=== PATIENT | female | born 1945 | race Caucasian/White ===

== ENCOUNTER 2024-05-16 11:38 | Outpatient (REF) | payer MEDICARE, OTHER, SELFPAY ==
[2024-05-16 13:54] LABS: Erythrocyte Sedimentation Rate 9 MM/HR (0-20)
[2024-05-16 14:10] LABS: Vitamin B12 755 pg/mL (200-900)
[2024-05-17 08:58] LABS: Lyme Abs Screen <0.90 index
== END 2024-05-16 11:39 | disposition home or self-care (01) ==
LOC: HO.LAB 11:38
PROVIDERS: PCP Internal Medicine; Visit Provider Psychiatry & Neurology Neurology
DX: G93.40 Encephalopathy, unspecified (principal)
CPT/HCPCS: 36415; 82607; 85652; 86617; 86618

== ENCOUNTER 2024-06-21 10:57 | Outpatient (REF) | payer MEDICARE, OTHER, SELFPAY ==
--- NOTE | ~2024-06-21 | MR_ITS ---
EXAMINATION: MR BRAIN WITHOUT CONTRAST CLINICAL INFORMATION: Encephalopathy. History of lung cancer and endocarditis.. COMPARISON: None available. TECHNIQUE: MRI of the brain was obtained using routine sequences without contrast. FINDINGS: No restricted diffusion. There are few scattered susceptibility signal foci within the right and distal distribution in the supratentorial compartment. No acute intracranial hemorrhage, mass effect, midline shift, hydrocephalus or herniation. Bilateral multifocal patchy and punctate deep periventricular white matter hyperintense T2 FLAIR signal involving centrum semiovale and lechuga radiata. Multifocal old lacunar infarcts with the cribriform pattern in the basal ganglia and lechuga radiata. Old lacunar infarcts in the abdominal. There is a focal hyperintense T2 FLAIR signal within the subcortical white matter of the left middle frontal gyrus. Flow-void signal within the main vessels is normal. Dolichoectatic vertebrobasilar system. Prominence of the extra-axial CSF spaces, cerebral sulci and ventricles. Sellar/suprasellar region demonstrated no signal abnormality or masses. Craniocervical junction is intact and normal. No signal abnormality within the hippocampi. Focal, 7 mm intrinsic hyperintense T1 bone lesion, left parietal diploe , probably lipoma MR/MR head/brain wo con IMPRESSION: No acute stroke/nonhemorrhagic ischemia. No acute brain abnormality. 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 Global cerebral atrophy, mild. Electronically signed by: Alexi Doran MD 06/21/2024 03:37 PM EDT
--- OUTSIDE RECORDS SUMMARY | 2024-06-21 12:42 | XMS_ITS | Clinical Summary ---
Author Organization [facility] Address [address] [place] [address] Care Team Providers Care Temperature Inspector Name Role Phone Chary Wilson MD Primary Care Provider [phone] Allergies No known active allergies Medications Medication Sig Dispensed Refills Start Date End Date Status pantoprazole (PROTONIX) 20 MG tablet Take 1 tablet (20 mg total) by mouth daily. 0 Active FLUoxetine (PROzac) 20 MG capsule Take 1 capsule (20 mg total) by mouth daily. 0 Active traZODone (DESYREL) 50 MG tablet Take 1 tablet (50 mg total) by mouth every night at bedtime. 0 Active metoprolol succinate (TOPROL-XL) 24 hr tablet 25 mg Take by mouth daily. 0 Active atorvastatin (LIPITOR) tablet 10 mg Take 1 tablet (10 mg total) by mouth every evening. 0 Active levothyroxine (SYNTHROID) tablet 25 mcg Take 1 tablet (25 mcg total) by mouth every morning on an empty stomach. 0 Active fluticasone (FLONASE) 50 MCG/ACT nasal spray spray/apply 1 spray in each nostril daily. 0 Active loratadine (Claritin) 10 MG tablet Take 1 tablet (10 mg total) by mouth daily. 0 Active vitamin D3 (cholecalciferol) 25 MCG (1000 UT) tablet Take 1 tablet (25 mcg total) by mouth daily. 0 Active amLODIPine (NORVASC) tablet 5 mg Take 1 tablet (5 mg total) by mouth daily. 0 Active Calcium Citrate-Vitamin D (CALCIUM CITRATE+D3 PO) Take by mouth. 0 Active aspirin EC 81 MG tablet Take 1 tablet (81 mg total) by mouth daily. 0 Active magnesium oxide 400 (240 Mg) MG TABS tablet Take 1 tablet (400 mg total) by mouth 2 (two) times a day. 0 Active melatonin 3 MG TABS tablet Take 2 tablets (6 mg total) by mouth every night at bedtime. 0 Active Active Problems No known active problems Family History Medical History Relation Name Comments Breast cancer Mother Relation Name Status Comments Father Mother Social History Tobacco Use Types Packs/Day Years Used Date Smoking Tobacco: Some Days Cigarettes 40 Smokeless Tobacco: Never Tobacco Cessation:Ready to Q uit: Not Asked; Counseling Given: Not Answered Comments:Pt is trying to quit she states. Alcohol Use Standard Drinks/Week Comments Not Currently 0 (1 standard drink = 0.6 oz pur e alcohol) Sex and Gender Information Value Date Recorded Sex Assigned at Female 08/23/2022 12:01 PM EDT Gender Identity Not on file Sexual Orientation Not on file Job Start Date Occupation Industry Not on file Not on file Not on file Last Filed Vital Signs Vital Sign Reading Time Taken Comments Blood Pressure 138/60 09/16/2023 10:29 AM EDT Pulse 65 09/16/2023 10:29 AM EDT Temperature 36.7 ??C (98 ??F) 09/16/2023 10:29 AM EDT Respiratory Rate - - Oxygen Saturation 99% 09/16/2023 10:29 AM EDT Inhaled Oxygen Concentration - - Weight 62.4 kg (137 lb 9.6 oz) 09/16/2023 10:29 AM EDT Height 152.5 cm (5' 0.05 ) 09/16/2023 10:29 AM E DT Body Mass Index 26.83 09/16/2023 10:29 AM EDT Plan of Treatment Health Maintenance Due Date Last Done Comments Hepatitis C Screening 1945 COVID-19 Vaccine (#1) 1952 Depression Screening 1959 Preventative Health Evaluation 1965 Tobacco Cessation Counseling 1965 Shingrix-Zoster Vaccine (1 of 2) 1966 Fall Risk Assessment 2012 Osteoporosis Screening (DEXA Scan) 2012 DTap / Tdap / Td (2 - Td or Tdap) 10/28/2021 10/29/2011 RSV Adult > 60+ Yrs or (1 - 1-dose 75+ series) 2022 Influenza Vaccine (#1) 2023 3, 11/05/2021, 10/26/2019, Additional history exists Pneumococcal Vaccine Completed 10/26/2019, 11/05/2017, 07/10/2014, Additional history exists Hepatitis B Vaccines Aged Out No long er eligible based on patient's age to complete this topic RSV Ped < 20 months Aged Out No longe r eligible based on patient's age to complete this topic Care Teams Temperature Inspector Relationship Specialty Start Date End Date Chary Wilson MD PCP - General Internal Medicine 08/23/22
--- OUTSIDE RECORDS SUMMARY | 2024-06-21 12:42 | XMS_ITS | Encounter Summary ---
Author Organization [facility] Address [address] [place] [address] Care Team Providers Care Senior Estimator Name Role Phone Chary Wilson MD Primary Care Provider [phone] Reason for Referral * Consultation (Routine) - Authorized Specialty Diagnoses / Procedures Referred By Nayla ceron Referred To Contact Gastroenterology Diagnoses Gastroesophageal reflux disease without esophagitis Chary Wilson MD [address] [place] [address] Phone: tel: fax: Referral ID Status Reason Start Date Expiration Date Visits Requested Visits Authorized [id number] Authorized Specialty Services Required 06/20/2024 06/20/2025 1 1 Reason for Visit * Reason Comments Pre-op Exam Jas Thomas [email or web address] 07/26 Hypertension Encounter Details Date Type Department Care Team (Late st Contact Info) Description 06/20/2024 10:00 AM EDT Consult Adult Medicine [address] [address] Chary Wilson MD [address] [place] [address] Preop cardiovascular exam (Primary Dx); Primary hypertension; Other hyperlipidemia; Hypothyroidism due to acquired atrophy of thyroid; Coronary artery disease involving tanacross coronary artery of tanacross heart without angina pectoris; Recurrent major depressive disorder, in full remission ([facility] V24); Gastroesophageal reflux disease without esophagitis; Cataract of both eyes, unspecified cataract type Social History Tobacco Use Types Packs/Day Years Used Date Smoking Tobacco: Some Days Smokeless Tobacco: Never Tobacco Cessation:Ready to Q uit: Not Asked; Counseling Given: Not Answered Alcohol Use Standard Drinks/Week Comments Not Currently 0 (1 standard drink = 0.6 oz pur e alcohol) Housing Instability Answer Date Recorde d Are you worried that in the next 2 months you may not have stable housing? No 06/19/2024 Food Access & Nutrition Answer Date Rec orded Do you have access to a vari ety of food including fruits and vegetables? Yes 06/19/2024 Access to Healthcare Answer Date Record ed Within the last 3 months, ho daryl many times did you visit the emergency department for your medical care? 1 06/19/2024 Health Literacy Answer Date Recorded How often do you need to hav e someone help you when you read instructions, pamphlets, or other written material from your doctor or pharmacy? Always 06/19/2024 Caregiver: How often do you need to have someone help you when you read instructions, pamphlets, or other written material from your doctor or pharmacy? Not on file 06/19/2024 Financial Risk Answer Date Recorded How hard is it for you to pa y for the very basics like food, housing, medical care, and air conditioning / heating? Not very hard 06/19/2024 Transportation Answer Date Recorded Has the lack of transportati on kept you from meetings, work, or from getting things needed for daily living? No Has the lack of transportati on kept you from medical appointments or from getting medications? No 06/19/2024 Social Isolation Answer Date Recorded How often do you feel lonely or isolated from those around you? Sometimes 06/19/2024 Food Risk Answer Date Recorded Within the past 12 months we worried whether our food would run out before we got money to buy more. Never true 06/19/2024 Within the past 12 months th e food we bought just didn't last and we didn't have money to get more. Never true 06/19/2024 Dependent Care Answer Date Recorded Do you need help finding or paying for care for your loved ones. For example, child development consultant or elderly care for an older adult? No 06/19/2024 Education Answer Date Recorded Do you think completing more education or training, like finishing a GED, going to college, or learning a trade, would be helpful for you? No 06/19/2024 Employment and Income Answer Date Recor ded During the last four weeks, have you been actively looking for work? No 06/19/2024 Living Situation Answer Date Recorded What is your living situation? 0 06/19/2024 Comments Unknown Sex and Gender Information Value Date Recorded Sex Assigned at Not on file Legal Sex Female 3:52 AM EST Gender Identity Not on file Sexual Orientation Not on file documented as of this encounter Last Filed Vital Signs Vital Sign Reading Time Taken Comments Blood Pressure 118/62 06/20/2024 9:50 AM EDT Pulse 61 06/20/2024 9:50 AM EDT Temperature 36.8 ??C (98.3 ??F) 06/20/2024 9:50 AM ED T Respiratory Rate 14 06/20/2024 9:50 AM EDT Oxygen Saturation 97% 06/20/2024 9:50 AM EDT Inhaled Oxygen Concentration - - Weight 61.6 kg (135 lb 12.8 oz) 06/20/2024 9:50 AM EDT Height 154.9 cm (5' 1 ) 06/20/2024 9:50 AM EDT Body Mass Index 25.66 06/20/2024 9:50 AM EDT documented in this encounter Progress Notes * Chary Wilson MD - 06/20/2024 10:00 AM EDT Referring MD: Enoch HPI: Ms. Lemus is a 79 y.o. year old female who is scheduled for bilateral cataract extraction with lens implant left July 05, right July 26. She is here today for pre-operative consultation. Her functional status is greater than 4 METs as she can walk up a flight of stairs. She has not had problems with anesthesia or bleeding. She is seen today accompanied by her son. She has had a lung resection for lung cancer and is beingclosely followed by oncology, had coronary artery disease, hypertension, depression, elevated cholesterol, hypothyroidism. She does have significant spinal scoliosis. She is complaining of some reflux symptoms despite high-dose Protonix. She notes she was in the ER a week ago due to some dizziness and weakness, near syncope. She had negative labs, has not had any recurrence of symptoms since then. ROS: General: No malaise, significant weight loss or fever HEENT: No changes in hearing, nose bleeds Neck: No pain or significant neck swelling Respiratory: No cough, wheezing or shortness of breath Cardiovascular: No chest pain, palpitations, no orthopnea GI: No nausea or vomiting, diarrhea, blood in stools or black stools : No dysuria, frequency or incontinence Musculoskeletal: No joint pain or swelling, no muscle pain or stiffness Skin: No lesions, rash or itching Psych: No sleep disturbance, mood disorder Heme/lymph: No prolonged bleeding, bruising, easily Endocrine: No cold or heat intolerance, polyuria, polydipsia Neuro no persistent headache, syncope, seizures, weakness or numbness The remainder of the review of systems is noncontributory. PAST MEDICAL HISTORY: Patient Active Problem List Diagnosis Date Noted PFD (pelvic floor dysfunction) 11/24/2023 Rectocele 11/24/2023 Malignant neoplasm of lower lobe of right lung ([facility] V24, [facility] V28) 08/16/2022 Vitamin D deficiency 06/21/2022 Chronic back pain 04/16/2020 Hypertension 01/30/2020 CAD (coronary artery disease) 12/27/2018 Complete heart block ([facility] V24, [facility] V28) 12/27/2018 Hypothyroidism 12/27/2018 S/P MVR (mitral valve replacement) 12/27/2018 Pacemaker 12/27/2018 Depression, major, recurrent ([facility] V24) 02/11/2014 Osteopenia 12/03/2012 Kidney stone 09/01/2010 Onychomycosis 11/17/2006 Acute osteomyelitis of lower leg ([facility] V24, [facility] V28) 03/12/2005 Carpal tunnel syndrome 03/12/2005 Hyperlipidemia 03/12/2005 Idiopathic scoliosis and kyphoscoliosis 03/12/2005 . SOCIAL HISTORY: Social History Tobacco Use Smoking status: Some Days Smokeless tobacco: Never Substance Use Topics Alcohol use: Not Currently FAMILY HISTORY: Family History Problem Relation Name Age of Onset Breast cancer Mother CABG Other (aaa) Father Thyroid cancer Sister Ovarian cancer Maternal Grandmother ACTIVE MEDICATIONS: Outpatient Medications Marked as Taking for the 06/20/24 encounter (Consult) with Chary Wilson MD Medication Sig Dispense Refill amLODIPine (NORVASC) 5 mg tablet Take 1 tablet (5 mg total) by mouth 1 (one) time each day. 90 tablet 1 aspirin 81 mg EC tablet Take 1 tablet (81 mg total) by mouth 1 (one) time each day. 90 tablet 3 atorvastatin (LIPITOR) 10 mg tablet Take 1 tablet (10 mg total) by mouth at bedtime. 90 tablet 1 cholecalciferol (VITAMIN D-3) 25 mcg (1,000 unit) tablet Take 1 tablet (25 mcg total) by mouth daily. FLUoxetine (PROzac) 10 mg capsule Use along with 20 mg tab daily 30 each 5 FLUoxetine (PROzac) 20 mg capsule Take 1 capsule (20 mg total) by mouth 1 (one) time each day. 30 each 5 levothyroxine (SYNTHROID, LEVOTHROID) 25 mcg tablet Take 1 tablet (25 mcg total) by mouth 1 (one) time each day. 90 tablet 1 metoprolol succinate (TOPROL-XL) 25 mg 24 hr tablet Take 1 tablet (25 mg total) by mouth 1 (one) time each day. Do not crush or chew. 90 tablet 1 pantoprazole (PROTONIX) 40 mg EC tablet Take 1 tablet (40 mg total) by mouth 2 (two) times a day. 180 tablet 1 traZODone (DESYREL) 50 mg tablet Take 1 tablet (50 mg total) by mouth at bedtime. 90 tablet 1 ALLERGIES: Patient has no known allergies. PHYSICAL EXAM: Blood pressure 118/62, pulse 61, temperature 36.8 ??C (98.3 ??F), temperature source Temporal, resp. rate 14, height 1.549 m (61 ), weight 61.6 kg (135 lb 12.8 oz), SpO2 97%. Body mass index is 25.66kg/m??. General: patient is in no acute distress. Eye exam: JAMARI, EOMI. ENT exam: pharynx is clear no tonsillar enlargement or exudates. Tympanic membranes are clear without air fluid levels or erythema. Neck supple without adenopathy, no thyromegaly. Lungs clear with auscultation. Heart: regular S1S2 without murmur, rub or gallop. Abdominal exam: soft, nontender, no masses or organomegaly. Bowel soundsnormal active. Extremities without cyanosis, clubbing or edema. Neurological: exam is nonfocal. Strength, reflexes, sensation in the upper and lower extremities intact. Skin exam: without lesions. LABS: Lab Results Component Value Date WBC 11.1 (H) 06/13/2024 HGB 13.1 06/13/2024 HCT 40.9 06/13/2024 MCV 95.6 06/13/2024 Lab Results Component Value Date NA 142 06/13/2024 K 4.7 06/13/2024 CO2 27 06/13/2024 CL 108 06/13/2024 BUN 21 06/13/2024 Lab Results Component Value Date TSH 0.93 02/10/2024 EKG: Normal sinus rhythm rate 72, right bundle branch block, no ischemic changes. ASSESSMENT AND PLAN: 1. Preop cardiovascular exam 2. Primary hypertension 3. Other hyperlipidemia 4. Hypothyroidism due to acquired atrophy of thyroid 5. Coronary artery disease involving tanacross coronary artery of tanacross heart without angina pectoris 6. Recurrent major depressive disorder, in full remission ([facility] V24) 7. Gastroesophageal reflux disease without esophagitis 8. Cataract of both eyes, unspecified cataract type Cardiac - Ms. Lemus clinical risk factors include ischemic heart disease and female is scheduled for a low risk procedure. Her functional capacity is estimated to be greater than 4 METs. She is, therefore, estimated to have an acceptablerisk for the proposed procedure. Further cardiac workup is not warranted. Beta blockade perioperatively is to be continued. Pulmonary - Her pulmonary risk factors include age > 50. Early ambulation and use of incentive spirometry, when appropriate, are encouraged. Medications -she will be following with oncology as already planned and has a chest CT scheduled. She is having some reflux symptoms, will continue with Protonix and is referred to see GI. Depressionis stable on the Prozac and she will continue with Lipitor for her cholesterol, good blood pressurecontrol with amlodipine and Toprol. She denies any cardiac ischemic symptoms. She will hold the baby aspirin for 1 week prior to each procedure and otherwise take her morning medications on the morning of the procedure with a small amount of water. Please do not hesitate to contact me with any questions or concerns. Thank you for the courtesy of this consultation. Chary Wilson MD on 06/20/2024 at 10:25 AM EDT cc: Eonch documented in this encounter Plan of Treatment Upcoming Encounters Date Type Department Care Team (Late st Contact Info) Description 07/03/2024 11:00 AM EDT Appointment [facility] CT Scan [address] [place] [address] 07/19/2024 1:30 PM EDT Office Visit [facility] Hematology Oncology [address] [place] [address] Marla Manuel, [address] [place] [address] 08/08/2024 9:45 AM EDT Office Visit Adult Medicine [facility] [address] [place] [address] Milli Luu PA [address] [place] [address] Scheduled Referrals Name Type Priority Associated Diagnoses Order Schedule Ambulatory referral to Gastroenterology Outpatient Referral Routine Gastroesophageal reflux disease without esophagitis 1 Occurrences starting 06/20/2024 until 06/20/2025 documented as of this encounter Visit Diagnoses Diagnosis Preop cardiovascular exam- Primary Pre-operative cardiovascular examination Primary hypertension Unspecified essential hypertension Other hyperlipidemia Hypothyroidism due to acquired atrophy of thyroid Coronary artery disease involving tanacross coronary artery of tanacross heart without angina pectoris Recurrent major depressive disorder, in full remission (CMS/HCC V24) Gastroesophageal reflux disease without esophagitis Esophageal reflux Cataract of both eyes, unspecified cataract type documented in this encounter Additional Health Concerns Assessment Noted Time PHQ-9 Depression Total Score: 16 025 12:53 PM EDT documented as of this encounter Care Teams Senior Estimator Relationship Specialty Start Date End Date Chary Wilson MD [address] [place] [id number] PCP - General 02/22/1996 documented as of this encounter
--- OUTSIDE RECORDS SUMMARY | 2024-06-21 12:42 | XMS_ITS | Clinical Summary ---
Author Organization [facility] Address [address] [address] Phone Care Team Providers Care Administrative Asst Name Role Phone Chary Wilson MD Primary Care Provider [phone] Allergies Active Allergy Reactions Criticality Noted Date Comments Ofloxacin Other (see comments) 01/02/2019 Unknown reaction Simvastatin Other (see comments) 01/02/2019 D/c due to interaction with antibiotic Medications acetaminophen (TYLENOL) 325 MG tablet Take 3 tablets by mouth 4 (four) times a day Active Aspirin Buf,CaCarb-MgCa rb-MgO, 81 MG tablet Take 81 mg by mouth 1 (one) time each day Active FLUoxetine (PROzac) 20 MG capsule Take 1 capsule by mouth 1 (one) time each day 9 Active melatonin 3 MG tablet Take 6 mg by mouth at bed time 9 Active pantoprazole (PROTONIX) 20 MG EC tablet Take 40 mg by mouth in the morning and 40 mg in the evening. 1 Active traZODone (DESYREL) 50 MG tablet Take 1 tablet by mouth 1 (one) time each day Patient takinghalf tab 1 Active metoprolol tartrate 25 MG tablet Take 1 tablet (25 mg total) by mouth 1 (one) time each day 90 tablet 3 2 Active atorvastatin (LIPITOR) 10 MG tablet Take 1 tablet (10 mg total) by mouth 1 (one) time each day 90 tablet 3 2 Active levothyroxine (SYNTHROID, LEVOTHROID) 25 MCG tablet Take 1 tablet by mouth once daily 90 tablet 3 Active amLODIPine (NORVASC) 5 MG tablet Take 1 tablet (5 mg total) by mouth 1 (one) time each day 90 tablet 3 4 Active Sennosides-Docu sate Sodium (SENNA-DOCUSATE SODIUM PO) Take by mouth Activ e Calcium Carb-Cholecalci ferol (CALCIUM + D3 PO) Take by mouth Active Active Problems Problem Noted Date Diagnosed Date Chronic kidney disease, stage 2 (mild) 4 Hypertensive chronic kidney disease 12/26/2023 Stage 3a chronic kidney disease 07/30/2020 Essential (primary) hypertension 07/30/2020 Hypovolemia 07/30/2020 Stage 3 chronic kidney disease, not otherwise sp ecified 07/29/2020 Liver enzymes level above reference range 2020 Chronic back pain 04/16/2020 Hypertension 01/30/2020 Cardiac pacemaker in situ 12/27/2018 Overview (07/29/2020): Overview: Complete heart block 12/09 Complete heart block 12/09 Complete heart block 12/27/2018 Overview (07/29/2020): Overview: Pacemaker 12/09 Pacemaker 12/09 Coronary arteriosclerosis 12/27/2018 Overview (07/29/2020): Overview: 2 v CABG 11/09 2 v CABG 11/09 History of mitral valve replacement 12/27/2018 Overview (07/29/2020): Overview: 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 11/09 Bioprosthetic valve 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 11/09 Bioprosthetic valve Hypothyroidism 12/27/2018 Personal history of transien t ischemic attack (TIA), and cerebral infarction without residual deficits 12/27/2018 Overview (07/29/2020): Overview: Septic emboli, CVA 12/09, endocarditis Septic emboli, CVA 12/09, endocarditis Recurrent major depression 02/11/2014 Osteopenia 12/03/2012 Overview (07/29/2020): Overview: 12/03 T score spine +1.6 hip -1.3 12/03 T score spine +1.6 hip -1.3 12/10 T score spine +1.1 hip -1.7 FRAX score 18% 10 year fracture risk Renal stone 09/01/2010 Overview (07/29/2020): Overview: 4 mm nonobstructing, left kidney 4 mm nonobstructing, left kidney Onychomycosis 11/17/2006 Acute osteomyelitis of lower leg 03/12/2005 Overview (07/29/2020): Overview: left leg age 10, age 22 O update left leg age 10, age 22 O update Carpal tunnel syndrome 03/12/2005 Hyperlipidemia 03/12/2005 Scoliosis (and kyphoscoliosis), idiopathic 03/12 Immunizations Immunization Administration Dates Next Due Influenza (IM) Preservative Free 11/05/2017 Influenza Split High Dose Pr eservative Free IM 10/26/2019,11/26/2018 Influenza TIV (IM) 01/06/2016,12/10/2013, 013 Influenza, MDCK, Quadrivalen t, with preservative 01/03/2017 Pneumococcal Conjugate 13-Valent 11/05/2017,06/22 Pneumococcal Polysaccharide 11/13/2012 Td 02/21/2009 Tdap 10/29/2011 Family History Medical History Relation Comments Cancer Mother breast Gout Mother Heart disease Mother CHF Hypertension Mother Relation Status Comments Father Mother Social History Tobacco Use Types Packs/Day Years Used Date Smoking Tobacco: Former Cigarettes Q uit: 11/18/2018 Smokeless Tobacco: Never Alcohol Use Standard Drinks/Week Comments Yes 0 (1 standard drink = 0.6 oz pure alcohol) Alcoholic Drinks/day: Occasional social drink Comments Unknown Sex and Gender Information Value Date Recorded Sex Assigned at Not on file Legal Sex Female 4:55 PM EST Gender Identity Not on file Sexual Orientation Not on file Last Filed Vital Signs Vital Sign Reading Time Taken Comments Blood Pressure 138/74 12/26/2023 2:00 PM EST Pulse 70 12/26/2023 2:00 PM EST Temperature - - Respiratory Rate - - Oxygen Saturation 98% 12/22/2018 12:00 PM EDT Inhaled Oxygen Concentration - - Weight 62.4 kg (137 lb 9.6 oz) 12/26/2023 2:00 P M EST Height 152.4 cm (5') 01/28/2020 12:00 PM EST Body Mass Index 26.87 01/28/2020 12:00 PM EST Plan of Treatment Upcoming Encounters Date Type Department Care Team (Late st Contact Info) Description 12/24/2024 1:45 PM EST Office Visit [facility] [address] [phone] Michael Bellamy MD [address] [address] Health Maintenance Due Date Last Done Comments Influenza Vaccine (Season Ended) 2024 01/05/2023, 11/05/2021, 11/21/2020, Additional history exists Pneumococcal Vaccine: 50+ Years Completed 10/26/2019, 11/05/2017, 07/10/2014, Additional history exists Pneumococcal Vaccine: Peds (0 to 5 Years) and At-Risk Patients (6 to 49 Years) Discontinued 10/26/2019, 11/05/2017, 07/10/2014, Additional history exists Hepatitis B Vaccine Aged Out No longe r eligible based on patient's age to complete this topic Insurance [facility] Medicare [facility] Medicare Care Teams Administrative Asst Relationship Specialty Start Date End Date Chary Wilson MD [address] [place] [address] PCP - General Internal Medicine 09/07/21
--- OUTSIDE RECORDS SUMMARY | 2024-06-21 12:43 | XMS_ITS | Encounter Summary ---
Author Organization [facility] Address [address] [place] [address] Care Team Providers Care Crystal Attacher Name Role Phone Chary Wilson MD Primary Care Provider Encounter Details Date Type Department Care Team (Late Contact Info) Description 02/18/2024 Lab Requisition [facility] - Main Lab [address] [facility] [place] [phone] Joya Moore MD [address] [place] [id number] Encounter for other general examination Social History Tobacco Use Types Packs/Day Years Used Date Smoking Tobacco: Some Days Smokeless Tobacco: Never Alcohol Use Standard Drinks/Week Comments Not Currently 0 (1 standard drink = 0.6 oz pur e alcohol) Comments Unknown Sex and Gender Information Value Date Recorded Sex Assigned at Not on file Legal Sex Female 3:52 AM EST Gender Identity Not on file Sexual Orientation Not on file documented as of this encounter Plan of Treatment Upcoming Encounters Date Type Department Care Team (Late Contact Info) Description 07/03/2024 11:00 AM EDT Appointment [facility] CT Scan [address] [place] [phone] 07/19/2024 1:30 PM EDT Office Visit [facility] Hematology Oncology [address] [place] [phone] Marla Manuel, DO [address] [place] [address] 08/08/2024 9:45 AM EDT Office Visit Adult Medicine [facility] [address] [place] [phone] Milli Luu PA [address] [place], [place] documented as of this encounter Procedures Procedure Name Priority Date/Time Associated Diagnosis Comments COMPLETE BLOOD COUNT Routine 02/18/2024 8:12 AM EST Encounter for other general examination COMPREHENSIVE METABOLIC PANEL Routine 02/18/2024 8:12 AM EST Encounter for other general examination documented in this encounter Results * (ABNORMAL) Comprehensive metabolic panel (02/18/2024 8:12 AM EST) Sodium 142 133 - 145 mmol/L LAB CHEMISTRY METHOD 02/18/2024 11:03 AM [facility] Potassium 4.1 3.5 - 5.5 mmol/L LAB CHEMISTRY METHOD 02/18/2024 11:03 AM [facility] Chloride 108 96 - 110 mmol/L LAB CHEMISTRY METHOD 02/18/2024 11:03 AM [facility] CO2 31 21 - 32 mmol/L LAB CHEMISTRY METHOD 02/18/2024 11:03 AM [facility] Anion Gap 3 3 - 11 LAB CHEMISTRY METHOD 02/18/2024 11:03 AM [facility] Glucose 123(H) 70 - 100 mg/dL LAB CHEMISTRY METHOD 02/18/2024 11:03 AM [facility] BUN 19 5 - 25 mg/dL LAB CHEMISTRY METHOD 02/18/2024 11:03 AM [facility] Creatinine 0.98 0.50 - 1.10 mg/dL LAB CHEMISTRY METHOD 02/18/2024 11:03 AM [facility] eGFR 60 >=60 mL/min/1. 73m2 LAB CHEMISTRY METHOD 02/18/2024 11:03 AM [facility] Comment:Calculation based on the??Chronic Kidney Disease Epidemiology Collaboration (CKD-EPI) equation refit??without adjustment for race. BUN/Creatinine Ratio 19.4 LAB CHEMISTRY METHOD 02/18/2024 11:03 AM [facility] Calcium 9.1 8.5 - 10.5 mg/dL LAB CHEMISTRY METHOD 02/18/2024 11:03 AM [facility] AST (SGOT) 18 10 - 42 unit/L LAB CHEMISTRY METHOD 02/18/2024 11:03 AM [facility] ALT (SGPT) 18 10 - 60 unit/L LAB CHEMISTRY METHOD 02/18/2024 11:03 AM [facility] Alkaline Phosphatase 86 42 - 121 unit/L LAB CHEMISTRY METHOD 02/18/2024 11:03 AM [facility] Total Protein 6.8 6.0 - 8.0 g/dL LAB CHEMISTRY METHOD 02/18/2024 11:03 AM [facility] Albumin 3.7 3.2 - 5.0 g/dL LAB CHEMISTRY METHOD 02/18/2024 11:03 AM [facility] Total Bilirubin 0.3 0.0 - 1.4 mg/dL LAB CHEMISTRY METHOD 02/18/2024 11:03 AM [facility] Blood Venous blood specimen / Unknown Venipuncture / Unknown 02/18/2024 8:12 AM EST 02/18/2024 9:25 AM EST us Joya Moore MD LAB BLOOD ORDERABLES Final Resu lt [facility] [address] [place] [address], [place] [phone] * (ABNORMAL) Complete blood count (02/18/2024 8:12 AM EST) [facility] WBC 5.5 4.8 - 10.8 K/mcL LAB HEMETOLOGY METHOD 02/18/2024 10:42 AM [facility] RBC 4.10 3.80 - 4.80 M/mcL LAB HEMETOLOGY METHOD 02/18/2024 10:42 AM [facility] Hemoglobin 12.5 11.5 - 16.0 g/dL LAB HEMETOLOGY METHOD 02/18/2024 10:42 AM [facility] Hematocrit 40.0 35.0 - 47.0 % LAB HEMETOLOGY METHOD 02/18/2024 10:42 AM [facility] MCV 98.0 79.0 - 98.0 FL LAB HEMETOLOGY METHOD 02/18/2024 10:42 AM [facility] MCH 30.6 27.0 - 32.0 pcg LAB HEMETOLOGY METHOD 02/18/2024 10:42 AM [facility] MCHC 31.3(L) 32.0 - 37.0 g/dL LAB HEMETOLOGY METHOD 02/18/2024 10:42 AM [facility] RDW 12.8 11.0 - 15.0 % LAB HEMETOLOGY METHOD 02/18/2024 10:42 AM [facility] Platelets 343 130 - 400 K/mcL LAB HEMETOLOGY METHOD 02/18/2024 10:42 AM [facility] MPV 10.4 7.0 - 11.0 FL LAB HEMETOLOGY METHOD 02/18/2024 10:42 AM [facility] NRBC 0.0 <1.0 % LAB HEMETOLOGY METHOD 02/18/2024 10:42 AM [facility] NRBC Absolute 0.00 <0.10 K/mcL LAB HEMETOLOGY METHOD 02/18/2024 10:42 AM [facility] Blood Venous blood specimen / Unknown Venipuncture / Unknown 02/18/2024 8:12 AM EST 02/18/2024 9:25 AM EST us Joya Moore MD LAB BLOOD ORDERABLES Final Resu lt [facility] [address] [place] [address], documented in this encounter Visit Diagnoses Diagnosis Encounter for other general examination documented in this encounter Care Teams Crystal Attacher Relationship Specialty Start Date End Date Chary Wilson MD [address] [place] [id number] PCP - General 02/22/1996 documented as of this encounter
--- OUTSIDE RECORDS SUMMARY | 2024-06-21 12:43 | XMS_ITS | Clinical Summary ---
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 Active amLODIPine (NORVASC) 5 mg tablet Take 1 tablet (5 mg total) by mouth 1 (one) time each day. 90 tablet 1 01/30/2024 Active atorvastatin (LIPITOR) 10 mg tablet Take 1 tablet (10 mg total) by mouth at bedtime. 90 tablet 1 01/30/2024 Active metoprolol succinate (TOPROL-XL) 25 mg 24 hr tablet Take 1 tablet (25 mg total) by mouth 1 (one) time each day. Do not crush or chew. 90 tablet 1 01/30/2024 Active traZODone (DESYREL) 50 mg tablet Take 1 tablet (50 mg total) by mouth at bedtime. 90 tablet 1 01/30/2024 Active hydrOXYzine HCL (ATARAX) 10 mg tablet Take 1 tablet (10 mg total) by mouth every 6 (six) hours if needed for itching. Active FLUoxetine (PROzac) 20 mg capsule Take 1 capsule (20 mg total) by mouth 1 (one) time each day. 30 each 5 03/02/2024 Active FLUoxetine (PROzac) 10 mg capsule Use along with 20 mg tab daily 30 each 5 03/02/2024 Active aspirin 81 mg EC tablet Take 1 tablet (81 mg total) by mouth 1 (one) time each day. 90 tablet 3 03/29/2024 Active pantoprazole (PROTONIX) 40 mg EC tablet Take 1 tablet (40 mg total) by mouth 2 (two) times a day. 180 tablet 1 04/10/2024 Active levothyroxine (SYNTHROID, LEVOTHROID) 25 mcg tablet Take 1 tablet (25 mcg total) by mouth 1 (one) time each day. 90 tablet 1 05/16/2024 Active Active Problems Problem Noted Date Diagnosed Date PFD (pelvic floor dysfunction) 11/24/2023 Rectocele 11/24/2023 Malignant neoplasm of lower lobe of right lung ([facility] V24, [facility] V28) 08/16/2022 Overview (02/24/2024): 08/13 non small cell lung carcinoma RT, no active disease as of 01/14 Vitamin D deficiency 06/21/2022 Chronic back pain 04/16/2020 Hypertension 01/30/2020 CAD (coronary artery disease) 12/27/2018 Overview (11/24/2023): 2 v CABG 11/09 Complete heart block ([facility] V24, [facility] V28) 12/27/2018 Overview (11/24/2023): Pacemaker 12/09 Hypothyroidism 12/27/2018 S/P MVR (mitral valve replacement) 12/27/2018 Overview (01/03/2024): 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 11/09 Bioprosthetic valve Pacemaker 12/27/2018 Overview (01/03/2024): Complete heart block 12/09 Depression, major, recurrent ([facility] V24) 02/11 Osteopenia 12/03/2012 Overview (11/24/2023): 11/2012: T-score lumbar (+1.6); hip (-1.3) 11/2019: T-score lumbar (+1.1); hip (-1.7); FRAX 18% 06/2022: T-score lumbar (+1.4); hip (-1.7); FRAX 18% Kidney stone 09/01/2010 Overview (11/24/2023): 4 mm nonobstructing, left kidney Onychomycosis 11/17/2006 Acute osteomyelitis of lower leg ([facility] V24, [facility] V28) 03/12/2005 Overview (11/24/2023): left leg age 10, age 22 IMO update Carpal tunnel syndrome 03/12/2005 Hyperlipidemia 03/12/2005 Idiopathic scoliosis and kyphoscoliosis 03/12/19 06 Resolved Problems Problem Noted Date Diagnosed Date Resolved Date Stage 2 chronic kidney disease 01/03/2024 01/17/2024 Overview (01/03/2024): Hx dialysis dependent NIC. Follows with [facility] Stage 3 chronic kidney disea se ([facility] V24, [facility] V28) 07/29/2020 01/17/2024 Encounters Date Type Department Care Team Description 06/20/2024 10:00 AM EDT Consult Adult Medicine [address] [phone] Chary Wilson MD Preop cardiovascular exam (Primary Dx); Primary hypertension; Other hyperlipidemia; Hypothyroidism due to acquired atrophy of thyroid; Coronary artery disease involving ekuk coronary artery of ekuk heart without angina pectoris; Recurrent major depressive disorder, in full remission ([facility] V24); Gastroesophageal reflux disease without esophagitis; Cataract of both eyes, unspecified cataract type 06/13/2024 10:43 PM EDT - 06/14/2024 12:03 AM EDT Emergency [facility] Emergency [address] [place] [address] Kriss Henao MD Near syncope (Primary Dx) Discharge Disposition: Home or Self Care 05/24/2024 Telephone Adult Medicine [place] - [address] [phone] Chary Wilson MD Labs Only 05/22/[address] [phone] Ami Mcfarlane, ALEJANDRO 05/03/[address] [phone] Chary Wilson MD Provider Call Back 04/19/[address] [phone] Chary Wilson MD faxed order ([facility] Order # [id number]) 04/18/[address] [phone] Yeimi Sky RN Faxed Order ([facility] Order# [id number]) 04/10/2024 9:45 AM EST Office Visit [address] [phone] Chary Wilson MD Primary hypertension (Primary Dx); Hypothyroidism due to acquired atrophy of thyroid; Coronary artery disease involving ekuk coronary artery of ekuk heart without angina pectoris; Recurrent major depressive disorder, in full remission ([facility] V24) 04/04/[address] [phone] Chary Wilson MD provider call back 04/02/2024 [place] [facility] [address] [phone] Chary Wilson MD orders from Last 3 Months Immunizations Name Administration Dates Next Due COVID-19 (Moderna/Spikevax) 12yo and older 11/23/2022 Influenza Quadravalent, 0.5m l (Fluad) 65yo and older 11/05/2021,11/21/2020,10/26/2019 Influenza Quadravalent, MDCK , 0.5ml, with preservative (Flucelvax) 6mo and older 01/03/2017 Influenza trivalent, 0.5mL ( Fluad) 65yo and older 12/02/2023,11/05/2017 Influenza trivalent, 0.5mL ( Fluzone High-dose) 65yo and older 01/05/2023,11/05/2021,10/26/2019,11/26,11/05/2017,12/11/2014 Influenza trivalent, with pr eservative (Fluzone; Afluria) 6mo and older 01/06/2016,12/10/2013,01/04/2013 Influenza, Unspecified 11/21/2020,11/05/2017 Moderna SARS-CoV-2 COVID-19, mRNA, LNP-S, preservative free 12/16/2020 Pneumococcal conjugate 13 va lent (Prevnar 13, PCV13) 2mo and older 11/05/2017,07/10/2014 Pneumococcal polysaccharide 23 valent (Pneumovax 23) 2yo and older 10/26/2019,11/13/2012 RSV, bivalent, protein subun it RSVpreF, 0.5mL, Preservative Free (ABRYSVO) 60yo and older or 32 through 36 wks of 01/11/2023 Td Tetanus diptheria (Tdvax) 7yo and older 05/31/2022,02/21/2009 Td, Unspecified 08/31/2001 Tdap Tetanus diptheria acell ular pertussis (Boostrix; Adacel) 7yo and older 10/29/2011 Surgical History Surgery Date Site/Laterality Comments SECTION MITRAL VALVE REPLACEMENT CARDIAC PACEMAKER PLACEMENT BACK SURGERY COLONOSCOPY 05/05/2022 Medical History Medical History Date Comments Stage 3 chronic kidney disea se ([facility] V24, [facility] V28) 07/29/2020 Hypertension 01/30/2020 Hypothyroidism 12/27/2018 Kidney stone 09/01/2010 4 mm nonobstruct ing, left kidney Malignant neoplasm of lower lobe of right lung ([facility] V24, [facility] V28) 08/16/202208/13 non small c ell lung carcinoma ? 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 For example, early childhood aide classroom or elderly care for an older adult? [...] on file Sexual Orientation Not on file Obstetrics History Last Filed Vital Signs Vital Sign Reading [...] Mass Index 25.66 06/20/2024 9:50 AM EDT Plan of Treatment Upcoming Encounters Date Type Department Care Team (Late st Contact Info) Description 07/03/2024 11:00 AM EDT Appointment [facility] CT Scan [address] [place] [phone] 07/19/2024 1:30 PM EDT Office Visit [facility] Hematology Oncology [address] [place] [phone] Marla Manuel DO [address] [place] [address] 08/08/2024 9:45 AM EDT Office Visit Adult Medicine [facility] [address] [place] [phone] Milli Luu PA [address] [place] [address] Health Maintenance Due Date Last Done Comments Zoster Vaccines (1 of 2) 1964 COVID-19 Vaccine ( season) 2023 11/23/2022, 09/24/2021, 12/16/2020, Additional history exists Falls Risk Assessment 06/29/2024 06/30/2023 Medicare Annual Wellness Visit 06/29/2024 06/30/2023 Hypertension/CHF/CAD Annual BMP Blood Test 06/13/2025 06/13/2024, 02/18/2024, 02/13/2024, Additional history exists Depression Screening 06/19/2025 06/19/2024, 06/30/19 24 Social Influencers of Health Screening 06/19/2025 06/19/2024 Cholesterol Screening (Lipid Panel) 01/12/2029 01/13/2024, 12/09/2022 Colorectal Cancer Screening: Colonoscopy 05/05/2032 05/05/2022 DTaP,Tdap,and Td Vaccines (5 - Td or Tdap) 05/31/2032 05/31/2022, 10/29/2011, 02/21/2009, Additional history exists Osteoporosis Screening (Bone Density Screening) 06/21/2032 06/21/2022, 11/27/2019 Hepatitis C Screening Addressed 04/28/2011 Overri dden with the intention of not completing the topic Pneumococcal Vaccine: 50+ Years Completed 10/26/2019, 11/05/2017, 07/10/2014, Additional history exists Breast Cancer Screening Discontinued 06/22/19, 06/19/2018, 06/15/2017, Additional history exists RSV Immunization Adult Patients Completed 01/11/2023 Influenza Vaccine Completed 12/02/2023, , 11/05/2021, Additional history exists HIB Vaccines Aged Out No longer eligi ble based on patient's age to complete this topic HPV Vaccines Aged Out No longer eligi ble based on patient's age to complete this topic Hepatitis A Vaccines Aged Out No long er eligible based on patient's age to complete this topic Hepatitis B Vaccines Aged Out No long er eligible based on patient's age to complete this topic IPV Vaccines Aged Out No longer eligi ble based on patient's age to complete this topic Lung Cancer Screening (Low Dose CT) Discontinued MMR Vaccines Aged Out No longer eligi ble based on patient's age to complete this topic Meningococcal ACWY Vaccine Aged Out N o longer eligible based on patient's age to complete this topic Meningococcal B Vaccine Aged Out No l onger eligible based on patient's age to complete this topic RSV Immunization Patients Under 20 months Aged Out No longer eligible based on patient's age to complete this topic Varicella Vaccines Aged Out No longer eligible based on patient's age to complete this topic Procedures Procedure Name Priority Date/Time Associated Diagnosis Comments ECG ANNOTATED 06/15/2024 CBC WITH AUTO DIFFERENTIAL STAT 06/13/2024 1:11 PM EDT TROPONIN I HIGH SENSITIVITY STAT 06/13/2024 1:11 PM EDT MAGNESIUM STAT 06/13/2024 1:11 PM EDT BASIC METABOLIC PANEL STAT 06/13/2024 1:11 PM EDT CBC AND DIFFERENTIAL STAT 06/13/2024 1:11 PM EDT ECG 12-LEAD STAT 06/13/2024 12:55 PM EDT LIPID PANEL WITH REFLEX TO DIRECT LDL Routine 01/13/2024 11:51 AM EST Mixed hyperlipidemia DEPRESSION SCREENING Routine 06/30/2023 DXA BONE DENSITY STUDY 1+ SITS AXIAL SKEL Routine 06/21/2022 3:08 PM EDT Other specified disorders of bone density and structure, unspecified site SCREENING MAMMOGRAPHY BI 2-VIEW BREAST INC CAD Routine 06/21/2022 2:51 PM EDT Encounter for screening mammogram for malignant neoplasm of breast COLONOSCOPY Routine 05/05/2022 from Last 3 Months or Most Recently Relevant to Health Maintenance Results * ECG-Annotated (06/15/2024) us Provider Onbase ECG ORDERABLES Final Result * Troponin I high sensitivity (06/13/2024 1:11 PM EDT) [facility] High Sensitivity Troponin I 10 <=54 ng/L LAB CHEMISTRY METHOD 06/13/2024 2:[address] [facility] Blood Venous blood specimen / Unknown Venipuncture / Unknown 06/13/2024 1:11 PM EDT 06/13/2024 2:[address] [facility] - 06/13/2024 2:37 PM EDT High levels of biotin in samples may falsely decrease hsTroponin values. ??Use caution when interpreting hsTroponin results in patients taking biotin who exhibit renal impairment (eGFR <60) or in patients taking more than 20 mg/day of biotin. Kriss Henao MD LAB BLOOD ORDERABLES Fin al Result [facility] [address] [place] [address], * (ABNORMAL) CBC auto differential (06/13/2024 1:11 PM EDT) [facility] WBC 11.1(H) 4.8 - 10.8 K/mcL LAB HEMETOLOGY METHOD 06/13/2024 2:11 PM [facility] RBC 4.30 3.80 - 4.80 M/mcL LAB HEMETOLOGY METHOD 06/13/2024 2:11 PM [facility] Hemoglobin 13.1 11.5 - 16.0 g/dL LAB HEMETOLOGY METHOD 06/13/2024 2:11 PM [facility] Hematocrit 40.9 35.0 - 47.0 % LAB HEMETOLOGY METHOD 06/13/2024 2:11 PM [facility] MCV 95.6 79.0 - 98.0 FL LAB HEMETOLOGY METHOD 06/13/2024 2:11 PM [facility] MCH 30.6 27.0 - 32.0 pcg LAB HEMETOLOGY METHOD 06/13/2024 2:11 PM [facility] MCHC 32.0 32.0 - 37.0 g/dL LAB HEMETOLOGY METHOD 06/13/2024 2:11 PM [facility] RDW 13.5 11.0 - 15.0 % LAB HEMETOLOGY METHOD 06/13/2024 2:11 PM [facility] Platelets 319 130 - 400 K/mcL LAB HEMETOLOGY METHOD 06/13/2024 2:11 PM [facility] MPV 10.5 7.0 - 11.0 FL LAB HEMETOLOGY METHOD 06/13/2024 2:11 PM [facility] NRBC 0.0 <1.0 % LAB HEMETOLOGY METHOD 06/13/2024 2:11 PM [facility] NRBC Absolute 0.00 <0.10 K/mcL LAB HEMETOLOGY METHOD 06/13/2024 2:11 PM [facility] Neutrophils Relative 74.4 % LAB HEMETOLOGY METHOD 06/13/2024 2:11 PM [facility] Lymphocytes Relative 15.3 % LAB HEMETOLOGY METHOD 06/13/2024 2:11 PM [facility] Monocytes Relative 7.7 % LAB HEMETOLOGY METHOD 06/13/2024 2:11 PM [facility] Eosinophils Relative 1.4 % LAB HEMETOLOGY METHOD 06/13/2024 2:11 PM [facility] Basophils Relative 0.7 % LAB HEMETOLOGY METHOD 06/13/2024 2:11 PM [facility] Immature Granulocytes Relative 0.5 % LAB HEMETOLOGY METHOD 06/13/2024 2:11 PM [facility] Neutrophils Absolute 8.24(H) 1.50 - 7.00 K/mcL LAB HEMETOLOGY METHOD 06/13/2024 2:11 PM [facility] Lymphocytes Absolute 1.70 1.00 - 5.00 K/mcL LAB HEMETOLOGY METHOD 06/13/2024 2:11 PM [facility] Monocytes Absolute 0.85 0.20 - 1.00 K/mcL LAB HEMETOLOGY METHOD 06/13/2024 2:11 PM [facility] Eosinophils Absolute 0.16 0.00 - 0.50 K/mcL LAB HEMETOLOGY METHOD 06/13/2024 2:11 PM [facility] Basophils Absolute 0.08 0.00 - 0.20 K/mcL LAB HEMETOLOGY METHOD 06/13/2024 2:11 PM [facility] Immature Granulocytes Absolute 0.06(H) 0.00 - 0.03 K/mcL LAB HEMETOLOGY METHOD 06/13/2024 2:11 PM [facility] Blood Venous blood specimen / Unknown Venipuncture / Unknown 06/13/2024 1:11 PM EDT 06/13/2024 2:01 PM EDT Kriss Henao MD LAB BLOOD ORDERABLES Fin al Result Performing Organization Address [facility]/ZIP Co de Phone Number [facility] [address] [place] [address], [place] [phone] * Magnesium (06/13/2024 1:11 PM EDT) [facility] Magnesium 1.9 1.9 - 2.6 mg/dL LAB CHEMISTRY METHOD 06/13/2024 2:[address] [facility] Blood Venous blood specimen / Unknown Venipuncture / Unknown 06/13/2024 1:11 PM EDT 06/13/2024 2:01 PM EDT Kriss Henao MD LAB BLOOD ORDERABLES Fin al Result Performing Organization Address [facility]/ZIP Co de Phone Number [facility] [address] [place] [address], [place] [phone] * (ABNORMAL) Basic metabolic panel (06/13/2024 1:11 PM EDT) [facility] Sodium 142 133 - 145 mmol/L LAB CHEMISTRY METHOD 06/13/2024 2:[address] [facility] Potassium 4.7 3.5 - 5.5 mmol/L LAB CHEMISTRY METHOD 06/13/2024 2:[address] [facility] Chloride 108 96 - 110 mmol/L LAB CHEMISTRY METHOD 06/13/2024 2:[address] [facility] CO2 27 21 - 32 mmol/L LAB CHEMISTRY METHOD 06/13/2024 2:[address] [facility] Anion Gap 7 3 - 11 LAB CHEMISTRY METHOD 06/13/2024 2:[address] [facility] Glucose 94 70 - 100 mg/dL LAB CHEMISTRY METHOD 06/13/2024 2:[address] [facility] BUN 21 5 - 25 mg/dL LAB CHEMISTRY METHOD 06/13/2024 2:[address] [facility] Creatinine 1.04 0.50 - 1.10 mg/dL LAB CHEMISTRY METHOD 06/13/2024 2:[address] [facility] eGFR 55(L) >=60 mL/min/1. 73m2 LAB CHEMISTRY METHOD 06/13/2024 2:[address] [facility] Comment:Calculation based on the??Chronic Kidney Disease Epidemiology Collaboration (CKD-EPI) equation refit??without adjustment for race. BUN/Creatinine Ratio 20.2 LAB CHEMISTRY METHOD 06/13/2024 2:[address] [facility] Calcium 9.7 8.5 - 10.5 mg/dL LAB CHEMISTRY METHOD 06/13/2024 2:[address] [facility] Blood Venous blood specimen / Unknown Venipuncture / Unknown 06/13/2024 1:11 PM EDT 06/13/2024 2:01 PM EDT us Kriss Henao MD LAB BLOOD ORDERABLES Fin al Result [facility] [address] [place] [address], * ECG 12 lead (06/13/2024 12:55 PM EDT) Ventricular Rate ECG 76 BPM GEMUSE Atrial Rate 76 BPM GEMUSE P-R Interval 164 ms GEMUSE QRS Duration 136 ms GEMUSE Q-T Interval 460 ms GEMUSE QTc 517 ms GEMUSE P Wave [place] 12 degrees GEMUSE R [place] -102 degrees GEMUSE T [place] 10 degrees GEMUSE ECG Interpretation Atrial sensing ventricular paced rhythm When compared with ECG of 07-FEB-2024 10:45, Atrial pacing not noted Confirmed by PREMA DESAI ([id number]) on 06/13/2024 9:07:02 PM GEMUSE 06/13/2024 12:5 5 PM EDT 06/13/2024 9:07 PM EDT us Kriss Henao MD ECG ORDERABLES Final Re sult GEMRANDY * (ABNORMAL) Lipid panel with reflex to direct LDL (01/13/2024 11:51 AM EST) Cholesterol 205(H) 0 - 200 mg/dL LAB CHEMISTRY METHOD 01/13/2024 1:[address] [facility] Triglycerides 240(H) 0 - 150 mg/dL LAB CHEMISTRY METHOD 01/13/2024 1:[address] [facility] HDL 54 >=40 mg/dL LAB CHEMISTRY METHOD 01/13/2024 1:[address] [facility] LDL Calculated 103(H) 0 - 100 mg/dL LAB CHEMISTRY METHOD 01/13/2024 1:[address] [facility] VLDL Cholesterol Roby 48 mg/dL LAB CHEMISTRY METHOD 01/13/2024 1:[address] [facility] Non HDL Chol. (LDL+VLDL) 151(H) <145 mg/dL LAB CHEMISTRY METHOD 01/13/2024 1:[address] [facility] Chol/HDL Ratio 3.8 0.0 - 4.4 LAB CHEMISTRY METHOD 01/13/2024 1:[address] [facility] Blood Venous blood specimen / Unknown Venipuncture / Unknown 01/13/2024 11:51 AM EST 01/13/2024 12:46 PM EST us Milli ZULETA LAB BLOOD ORDERABLES Final Re sult [facility] [address] [place] [address], [place] [phone] * Hm Depression Screening (06/30/2023) Depression Screening abstracted us Historical Provider HEALTH MAINTENANCE Final Result * DXA BONE DENSITY STUDY 1+ SITS AXIAL SKEL (06/21/2022 3:08 PM EDT) Anatomical Region Laterality Modality Bone Densitometr y 10/25/2021 4:49 PM EDT Narrative 06/22/2022 7:18 PM EDT Clinical history: other osteoporosis Scans of the lumbar spine and hips were performed on a [employer]Up fan beam bone densitometer. ? Bone mineral density measurements and associated T and Z scores respectively are as follows: Lumbar Spine: L2-L4 BMD: 1.233 g/cm2 ? T-Score: 1.4 ? Z-Score: 3.9 Compared with the prior study dated 11/27/2019, the BMD reading has increased which is statistically significant Left Proximal Femur: Neck BMD: 0.659 g/cm2 ? T-Score: -1.7 ?? Z-Score: 0.2 Total BMD: 0.772 g/cm2 ? T-Score: -1.4 ?Z-Score: 0.3 Compared with the prior study the mean BMD reading in the total left hip has increased which is not statistically significant Compared with standards for the young adult, lowest measured bone density places the patient in the W.H.O. osteopenic range. FRAX 10 year probability of major osteoporotic fracture: 18% FRAX 10 year probability of hip fracture: 3.2% Population: [place] () IMPRESSION: IMPRESSION: Osteopenia. The NOF guidelines recommend that FDA approved medical therapies be considered in postmenopausal women and men age >50 years with a: i. Hip or vertebral (clinical or morphometric) fracture ii. T score of < -2.5 at the spine or hip iii. 10 year fracture probability by FRAX of >3% for hip fracture, or >20% for major osteoporotic fracture PLEASE NOTE: ?? W.H.O. classification is based on lowest measured density at the spine, femoral neck, or total hip.This classification has prognostic significance when applied to post menopausal women and older men. 1) ??The World Health Organization defines low BMD as follows: ?T-score ? Normal ? at or > -1 Osteopenia ? < -1 and ??> - 2.5 Osteoporosis ? at or < -2.5 without fractures Established osteoporosis ? < -2.5 with fractures Procedure Note Suzette Luna MD - 03/29/2023 Clinical history: other osteoporosis Scans of the lumbar spine and hips were performed on a [employer] beam bone densitometer. Bone mineral density measurements and associated T and Z scoresrespectively are as follows: Lumbar Spine: L2-L4 BMD: 1.233 g/cm2 T-Score: 1.4 Z-Score: 3.9 Compared with the prior study dated 11/27/2019, the BMD reading hasincreased which is statistically significant Left Proximal Femur: Neck BMD: 0.659 g/cm2 T-Score: -1.7 Z-Score: 0.2 Total BMD: 0.772 g/cm2 T-Score: -1.4 Z-Score: 0.3 Compared with the prior study the mean BMD reading in the total left hiphas increased which is not statistically significant Compared with standards for the young adult, lowest measured bone densityplaces the patient in the W.H.O. osteopenic range. FRAX 10 year probability of major osteoporotic fracture: 18% FRAX 10 year probability of hip fracture: 3.2% Population: [place] () IMPRESSION: IMPRESSION: Osteopenia. The NOF guidelines recommend that FDA approved medical therapies beconsidered in postmenopausal women and men age >50 years with a: i. Hip or vertebral (clinical or morphometric) fracture ii. T score of < -2.5 at the spine or hip iii. 10 year fracture probability by FRAX of >3% for hip fracture, or >20%for major osteoporotic fracture PLEASE NOTE: W.H.O. classification is based on lowest measured density at the spine,femoral neck, or total hip.This classification has prognostic significance when applied to postmenopausal women and older men. 1) The World Health Organization defines low BMD as follows: T-score Normal at or > -1 Osteopenia < -1 and > -2.5 Osteoporosis at or < -2.5 withoutfractures Established osteoporosis < -2.5 with fractures us Milli ZULETA IMG DXA PROCEDURES Final Resu lt * SCREENING MAMMOGRAPHY BI 2-VIEW BREAST INC CAD (06/21/2022 2:51 PM EDT) Anatomical Region Laterality Modality Radiographic Regina ging 03/02/2021 8:26 PM EST Narrative 06/22/2022 4:13 PM EDT This is a summary report. The complete report is available in the patient's medical record. If you cannot access the medical record, please contact the sending organization for a detailed fax or copy. BILATERAL 3D DIGITAL SCREENING MAMMOGRAM History: Routine screening. ??No current breast complaints. ??Family history of breast cancer in mother Comparison: Mammogram from 06/19/2018 Technique: Bilateral full-field digital 3D mammography was performed using standard CC and MLO projections CAD was used to evaluate this mammogram. Findings: Density: ?? The breasts are heterogeneously dense which may obscure small masses-C RIGHT: No suspicious masses, groups of microcalcification or areas of architectural distortion identified. Stable typically benign parenchymal asymmetries LEFT: No suspicious masses, groups of microcalcifications or areas of architectural distortion identified. Stable typically benign parenchymal asymmetries IMPRESSION: : 1. ??No mammographic evidence of malignancy. BI-RADS Category 2 benign findings Recommendation: Routine annual screening mammography is recommended Procedure Note Suzette Luna MD - 03/28/2023 This is a summary report. The complete report is available in thepatient's medical record. If you cannot access the medical record, pleasecontact the sending organization for a detailed fax or copy. BILATERAL 3D DIGITAL SCREENING MAMMOGRAM History: Routine screening. No current breast complaints. Family historyof breast cancer in mother Comparison: Mammogram from 06/19/2018 Technique: Bilateral full-field digital 3D mammography was performed usingstandard CC and MLO projections CAD was used to evaluate this mammogram. Findings: Density: The breasts are heterogeneously dense which may obscure smallmasses-C RIGHT: No suspicious masses, groups of microcalcification or areas ofarchitectural distortion identified. Stable typically benign parenchymalasymmetries LEFT: No suspicious masses, groups of microcalcifications or areas ofarchitectural distortion identified. Stable typically benign parenchymalasymmetries IMPRESSION: : 1. No mammographic evidence of malignancy. BI-RADS Category 2 benign findings Recommendation: Routine annual screening mammography is recommended Chary Wilson MD IMG XR PROCEDURES Final Result * Colonoscopy (05/05/2022) Colonoscopy no interpretation , abstracted Anatomical Region Laterality Modality Other Historical Provider HEALTH MAINTENANCE Final Result from Last 3 Months or Most Recently Relevant to Health Maintenance Insurance MEDICARE [facility] Advance Directives Documents on File Type Date Recorded Patient Project Assistant Expl anation Advance Directives and Livin g Will 02/09/2024 10:38 AM PROXY * No CPR/Do Not Intubate (Latest Code Status on File) Date Activated Date Inactivated Comments 02/07/2024 4:10 PM 02/08/2024 6:03 PM This code status was ascertained in the following way: Code status discussion: discussion with patient To update the patient's code status, place a code status order. Do not modify or discontinue any currently active code status orders. Care Teams Lacquer Maker Relationship Specialty Start Date End Date Chary Wilson MD [address] [place] [address] PCP - General 02/22/1996
--- OUTSIDE RECORDS SUMMARY | 2024-06-21 12:43 | XMS_ITS | Encounter Summary ---
Author Organization [facility] Address [address] [place] [address] Care Team Providers Care Automobile Service Station Mechanic Name Role Phone Chary Wilson MD Primary Care Provider [phone] Encounter Details Date Type Department Care Team (Late Contact Info) Description 02/09/2024 Lab Requisition [facility] - Main Lab [address] [facility] [place] [phone] Joya Moore MD [address] [place] [address] Encounter for other general examination Social History [...] Info) Description 07/03/2024 11:00 AM EDT Appointment [facility] CT Scan [address] [place] [phone] 07/19/2024 1:30 PM EDT Office Visit [facility] Hematology Oncology [address] [place] [phone] Marla Manuel, DO [address] [place] [address] 08/08/2024 9:45 AM EDT Office Visit Adult Medicine [facility] [address] [place] [address] Milli Luu PA [address] [place], [place] documented as of this encounter Procedures Procedure Name Priority Date/Time Associated Diagnosis Comments CBC WITH AUTO DIFFERENTIAL Routine 02/09/2024 8:06 AM EST Encounter for other general examination CBC AND DIFFERENTIAL Routine 02/09/2024 8:06 AM EST Encounter for other general examination THYROID STIMULATING HORMONE Routine 02/09/2024 8:06 AM EST Encounter for other general examination MAGNESIUM Routine 02/09/2024 8:06 AM EST Encounter for other general examination COMPREHENSIVE METABOLIC PANEL Routine 02/09/2024 8:06 AM EST Encounter for other general examination documented in this encounter Results * Thyroid stimulating hormone (02/09/2024 8:06 AM EST) TSH 1.18 0.40 - 4.00 mcIU/mL LAB CHEMISTRY METHOD 02/09/2024 5:[address] [facility] Blood Venous blood specimen / Unknown Venipuncture / Unknown 02/09/2024 8:06 AM EST 02/09/2024 10:10 AM EST us Joya Moore MD LAB BLOOD ORDERABLES Final Resu lt [facility] [address] [place] [address], * (ABNORMAL) CBC auto differential (02/09/2024 8:06 AM EST) [facility] WBC 7.3 4.8 - 10.8 K/mcL LAB HEMETOLOGY METHOD 02/09/2024 11:18 AM [facility] RBC 4.30 3.80 - 4.80 M/mcL LAB HEMETOLOGY METHOD 02/09/2024 11:18 AM [facility] Hemoglobin 13.1 11.5 - 16.0 g/dL LAB HEMETOLOGY METHOD 02/09/2024 11:18 AM [facility] Hematocrit 41.6 35.0 - 47.0 % LAB HEMETOLOGY METHOD 02/09/2024 11:18 AM [facility] MCV 97.0 79.0 - 98.0 FL LAB HEMETOLOGY METHOD 02/09/2024 11:18 AM [facility] MCH 30.5 27.0 - 32.0 pcg LAB HEMETOLOGY METHOD 02/09/2024 11:18 AM [facility] MCHC 31.5(L) 32.0 - 37.0 g/dL LAB HEMETOLOGY METHOD 02/09/2024 11:18 AM [facility] RDW 13.0 11.0 - 15.0 % LAB HEMETOLOGY METHOD 02/09/2024 11:18 AM [facility] Platelets 317 130 - 400 K/mcL LAB HEMETOLOGY METHOD 02/09/2024 11:18 AM [facility] MPV 10.6 7.0 - 11.0 FL LAB HEMETOLOGY METHOD 02/09/2024 11:18 AM [facility] NRBC 0.0 <1.0 % LAB HEMETOLOGY METHOD 02/09/2024 11:18 AM [facility] NRBC Absolute 0.00 <0.10 K/mcL LAB HEMETOLOGY METHOD 02/09/2024 11:18 AM [facility] Neutrophils Relative 63.2 % LAB HEMETOLOGY METHOD 02/09/2024 11:18 AM [facility] Lymphocytes Relative 19.5 % LAB HEMETOLOGY METHOD 02/09/2024 11:18 AM [facility] Monocytes Relative 12.6 % LAB HEMETOLOGY METHOD 02/09/2024 11:18 AM [facility] Eosinophils Relative 3.4 % LAB HEMETOLOGY METHOD 02/09/2024 11:18 AM [facility] Basophils Relative 1.2 % LAB HEMETOLOGY METHOD 02/09/2024 11:18 AM [facility] Immature Granulocytes Relative 0.1 % LAB HEMETOLOGY METHOD 02/09/2024 11:18 AM [facility] Neutrophils Absolute 4.59 1.50 - 7.00 K/mcL LAB HEMETOLOGY METHOD 02/09/2024 11:18 AM [facility] Lymphocytes Absolute 1.42 1.00 - 5.00 K/mcL LAB HEMETOLOGY METHOD 02/09/2024 11:18 AM [facility] Monocytes Absolute 0.92 0.20 - 1.00 K/mcL LAB HEMETOLOGY METHOD 02/09/2024 11:18 AM [facility] Eosinophils Absolute 0.25 0.00 - 0.50 K/mcL LAB HEMETOLOGY METHOD 02/09/2024 11:18 AM [facility] Basophils Absolute 0.09 0.00 - 0.20 K/mcL LAB HEMETOLOGY METHOD 02/09/2024 11:18 AM [facility] Immature Granulocytes Absolute 0.01 0.00 - 0.03 K/mcL LAB HEMETOLOGY METHOD 02/09/2024 11:18 AM [facility] Blood Venous blood specimen / Unknown Venipuncture / Unknown 02/09/2024 8:06 AM EST 02/09/2024 10:10 AM EST us Joya Moore MD LAB BLOOD ORDERABLES Final Resu lt Performing Organization Address City/[facility]/ZIP Co de Phone Number [facility] [address] [place] [address], [place] [phone] * Magnesium (02/09/2024 8:06 AM EST) Pathologist [facility] Magnesium 2.2 1.9 - 2.6 mg/dL LAB CHEMISTRY METHOD 02/09/2024 11:[address] [facility] Blood Venous blood specimen / Unknown Venipuncture / Unknown 02/09/2024 8:06 AM EST 02/09/2024 10:10 AM EST us Joya Moore MD LAB BLOOD ORDERABLES Final Resu lt Performing Organization Address [facility]/ZIP Co de Phone Number [facility] [address] [place] [address], [place] [phone] * Comprehensive metabolic panel (02/09/2024 8:06 AM EST) [facility] Sodium 143 133 - 145 mmol/L LAB CHEMISTRY METHOD 02/09/2024 11:45 AM [facility] Potassium 5.0 3.5 - 5.5 mmol/L LAB CHEMISTRY METHOD 02/09/2024 11:45 AM [facility] Chloride 108 96 - 110 mmol/L LAB CHEMISTRY METHOD 02/09/2024 11:45 AM [facility] CO2 31 21 - 32 mmol/L LAB CHEMISTRY METHOD 02/09/2024 11:45 AM [facility] Anion Gap 4 3 - 11 LAB CHEMISTRY METHOD 02/09/2024 11:45 AM [facility] Glucose 97 70 - 100 mg/dL LAB CHEMISTRY METHOD 02/09/2024 11:45 AM [facility] BUN 16 5 - 25 mg/dL LAB CHEMISTRY METHOD 02/09/2024 11:45 AM [facility] Creatinine 0.94 0.50 - 1.10 mg/dL LAB CHEMISTRY METHOD 02/09/2024 11:45 AM [facility] eGFR 63 >=60 mL/min/1. 73m2 LAB CHEMISTRY METHOD 02/09/2024 11:45 AM [facility] Comment:Calculation based on the??Chronic Kidney Disease Epidemiology Collaboration (CKD-EPI) equation refit??without adjustment for race. BUN/Creatinine Ratio 17.0 LAB CHEMISTRY METHOD 02/09/2024 11:45 AM [facility] Calcium 9.5 8.5 - 10.5 mg/dL LAB CHEMISTRY METHOD 02/09/2024 11:45 AM [facility] AST (SGOT) 25 10 - 42 unit/L LAB CHEMISTRY METHOD 02/09/2024 11:45 AM [facility] ALT (SGPT) 17 10 - 60 unit/L LAB CHEMISTRY METHOD 02/09/2024 11:45 AM [facility] Alkaline Phosphatase 88 42 - 121 unit/L LAB CHEMISTRY METHOD 02/09/2024 11:45 AM [facility] Total Protein 6.8 6.0 - 8.0 g/dL LAB CHEMISTRY METHOD 02/09/2024 11:45 AM [facility] Albumin 3.8 3.2 - 5.0 g/dL LAB CHEMISTRY METHOD 02/09/2024 11:45 AM [facility] Total Bilirubin 0.5 0.0 - 1.4 mg/dL LAB CHEMISTRY METHOD 02/09/2024 11:45 AM [facility] Blood Venous blood specimen / Unknown Venipuncture / Unknown 02/09/2024 8:06 AM EST 02/09/2024 10:10 AM EST us Joya Moore MD LAB BLOOD ORDERABLES Final Resu lt [facility] [address] [place] [address], documented in this encounter Visit Diagnoses Diagnosis Encounter for other general examination documented in this encounter Care Teams Automobile Service Station Mechanic Relationship Specialty Start Date End Date Chary Wilson MD [address] [place] [address] PCP - General 02/22/1996 documented as of this encounter
--- OUTSIDE RECORDS SUMMARY | 2024-06-21 12:43 | XMS_ITS | Encounter Summary ---
Author Organization [facility] Address [address] [place] [address] Care Team Providers Care Radiologic Technology Program Director Name Role Phone Chary Wilson MD Primary Care Provider [phone] Encounter Details Date Type Department Care Team (Late Contact Info) Description 02/13/2024 Lab Requisition [facility] - Main Lab [address] [facility] [place] [phone] Joya Moore MD [address] [place] [address] Encounter for other general examination Social History [...] Info) Description 07/03/2024 11:00 AM EDT Appointment [facility] CT Scan [address] [place] [phone] 07/19/2024 1:30 PM EDT Office Visit [facility] Hematology Oncology [address] [place] [address] Marla Manuel, DO [address] [facility] [place] [address] 08/08/2024 9:45 AM EDT Office Visit Adult Medicine [facility] [address] [place] [address] Milli Luu PA [address] [place], [place] documented as of this encounter Procedures Procedure Name Priority Date/Time Associated Diagnosis Comments CBC WITH AUTO DIFFERENTIAL Routine 02/13/2024 5:37 AM EST Encounter for other general examination CBC AND DIFFERENTIAL Routine 02/13/2024 5:37 AM EST Encounter for other general examination MAGNESIUM Routine 02/13/2024 5:37 AM EST Encounter for other general examination COMPREHENSIVE METABOLIC PANEL Routine 02/13/2024 5:37 AM EST Encounter for other general examination documented in this encounter Results * (ABNORMAL) CBC auto differential (02/13/2024 5:37 AM EST) WBC 10.3 4.8 - 10.8 K/mcL LAB HEMETOLOGY METHOD 02/13/2024 10:53 AM [facility] RBC 3.90 3.80 - 4.80 M/mcL LAB HEMETOLOGY METHOD 02/13/2024 10:53 AM [facility] Hemoglobin 12.1 11.5 - 16.0 g/dL LAB HEMETOLOGY METHOD 02/13/2024 10:53 AM [facility] Hematocrit 38.6 35.0 - 47.0 % LAB HEMETOLOGY METHOD 02/13/2024 10:53 AM [facility] MCV 99.2(H) 79.0 - 98.0 FL LAB HEMETOLOGY METHOD 02/13/2024 10:53 AM [facility] MCH 31.1 27.0 - 32.0 pcg LAB HEMETOLOGY METHOD 02/13/2024 10:53 AM [facility] MCHC 31.3(L) 32.0 - 37.0 g/dL LAB HEMETOLOGY METHOD 02/13/2024 10:53 AM [facility] RDW 13.1 11.0 - 15.0 % LAB HEMETOLOGY METHOD 02/13/2024 10:53 AM [facility] Platelets 249 130 - 400 K/mcL LAB HEMETOLOGY METHOD 02/13/2024 10:53 AM [facility] MPV 10.9 7.0 - 11.0 FL LAB HEMETOLOGY METHOD 02/13/2024 10:53 AM [facility] NRBC 0.0 <1.0 % LAB HEMETOLOGY METHOD 02/13/2024 10:53 AM [facility] NRBC Absolute 0.00 <0.10 K/mcL LAB HEMETOLOGY METHOD 02/13/2024 10:53 AM [facility] Neutrophils Relative 78.2 % LAB HEMETOLOGY METHOD 02/13/2024 10:53 AM [facility] Lymphocytes Relative 7.0 % LAB HEMETOLOGY METHOD 02/13/2024 10:53 AM [facility] Monocytes Relative 12.2 % LAB HEMETOLOGY METHOD 02/13/2024 10:53 AM [facility] Eosinophils Relative 1.5 % LAB HEMETOLOGY METHOD 02/13/2024 10:53 AM [facility] Basophils Relative 0.8 % LAB HEMETOLOGY METHOD 02/13/2024 10:53 AM [facility] Immature Granulocytes Relative 0.3 % LAB HEMETOLOGY METHOD 02/13/2024 10:53 AM [facility] Neutrophils Absolute 8.10(H) 1.50 - 7.00 K/[facility] LAB HEMETOLOGY METHOD 02/13/2024 10:53 AM EST [facility] Lymphocytes Absolute 0.72(L) 1.00 - 5.00 K/[facility] LAB HEMETOLOGY METHOD 02/13/2024 10:53 AM EST [facility] Monocytes Absolute 1.26(H) 0.20 - 1.00 K/[facility] LAB HEMETOLOGY METHOD 02/13/2024 10:53 AM EST [facility] Eosinophils Absolute 0.15 0.00 - 0.50 K/[facility] LAB HEMETOLOGY METHOD 02/13/2024 10:53 AM EST [facility] Basophils Absolute 0.08 0.00 - 0.20 K/[facility] LAB HEMETOLOGY METHOD 02/13/2024 10:53 AM EST [facility] Immature Granulocytes Absolute 0.03 0.00 - 0.03 K/[facility] LAB HEMETOLOGY METHOD 02/13/2024 10:53 AM EST [facility] Blood Venous blood specimen / Unknown Venipuncture / Unknown 02/13/2024 5:37 AM EST 02/13/2024 9:20 AM EST us Joya Moore MD LAB BLOOD ORDERABLES Final Resu lt [facility] [address] [place] [address], * Magnesium (02/13/2024 5:37 AM EST) Magnesium 2.0 1.9 - 2.6 mg/dL LAB CHEMISTRY METHOD 02/13/2024 11:30 AM EST [facility] Blood Venous blood specimen / Unknown Venipuncture / Unknown 02/13/2024 5:37 AM EST 02/13/2024 9:20 AM EST us Joya Moore MD LAB BLOOD ORDERABLES Final Resu lt [facility] [address] [place] [address], * (ABNORMAL) Comprehensive metabolic panel (02/13/2024 5:37 AM EST) Sodium 138 133 - 145 mmol/L LAB CHEMISTRY METHOD 02/13/2024 11:30 AM EST [facility] Potassium 3.7 3.5 - 5.5 mmol/L LAB CHEMISTRY METHOD 02/13/2024 11:30 AM [facility] Chloride 107 96 - 110 mmol/L LAB CHEMISTRY METHOD 02/13/2024 11:30 AM [facility] CO2 26 21 - 32 mmol/L LAB CHEMISTRY METHOD 02/13/2024 11:30 AM [facility] Anion Gap 5 3 - 11 LAB CHEMISTRY METHOD 02/13/2024 11:30 AM [facility] Glucose 115(H) 70 - 100 mg/dL LAB CHEMISTRY METHOD 02/13/2024 11:30 AM [facility] BUN 17 5 - 25 mg/dL LAB CHEMISTRY METHOD 02/13/2024 11:30 AM [facility] Creatinine 0.93 0.50 - 1.10 mg/dL LAB CHEMISTRY METHOD 02/13/2024 11:30 AM EST [facility] eGFR 64 >=60 mL/min/1. 73m2 LAB CHEMISTRY METHOD 02/13/2024 11:30 AM [facility] Comment:Calculation based on the??Chronic Kidney Disease Epidemiology Collaboration (CKD-EPI) equation refit??without adjustment for race. BUN/Creatinine Ratio 18.3 LAB CHEMISTRY METHOD 02/13/2024 11:30 AM [facility] Calcium 8.9 8.5 - 10.5 mg/dL LAB CHEMISTRY METHOD 02/13/2024 11:30 AM [facility] AST (SGOT) 28 10 - 42 unit/L LAB CHEMISTRY METHOD 02/13/2024 11:30 AM [facility] ALT (SGPT) 22 10 - 60 unit/L LAB CHEMISTRY METHOD 02/13/2024 11:30 AM [facility] Alkaline Phosphatase 85 42 - 121 unit/L LAB CHEMISTRY METHOD 02/13/2024 11:30 AM [facility] Total Protein 6.5 6.0 - 8.0 g/dL LAB CHEMISTRY METHOD 02/13/2024 11:30 AM [facility] Albumin 3.6 3.2 - 5.0 g/dL LAB CHEMISTRY METHOD 02/13/2024 11:30 AM [facility] Total Bilirubin 0.4 0.0 - 1.4 mg/dL LAB CHEMISTRY METHOD 02/13/2024 11:30 AM [facility] Blood Venous blood specimen / Unknown Venipuncture / Unknown 02/13/2024 5:37 AM EST 02/13/2024 9:20 AM EST us Joya Moore MD LAB BLOOD ORDERABLES Final Resu lt [facility] [address] [place] [address], documented in this encounter Visit Diagnoses Diagnosis Encounter for other general examination documented in this encounter Care Teams Radiologic Technology Program Director Relationship Specialty Start Date End Date Chary Wilson MD [address] [place] [address] PCP - General 02/22/1996 documented as of this encounter
--- OUTSIDE RECORDS SUMMARY | 2024-06-21 12:43 | XMS_ITS | Encounter Summary ---
Author Organization [facility] Address [address] [address] Phone Care Team Providers Care Buy Boat Operator Name Role Phone Chary Wilson MD Primary Care Provider [phone] Reason for Visit * Reason Comments Med Refill Encounter Details Date Type Department Care Team (Late Contact Info) Description 11/29/2022 Refill [facility] [address] [address] [address] Robert Baeza MD Social History Tobacco Use Types Packs/Day Years [...] Department Care Team (Late Contact Info) Description 12/24/2024 1:45 PM EST Office Visit [facility] [address] [address] Michael Bellamy MD [address] [address] documented as of this encounter Visit Diagnoses Not on filedocumented in this encounter Care Teams Buy Boat Operator Relationship Specialty Start Date End Date Chary Wilson MD [address] [place] [address] PCP - General Internal Medicine 09/07/21 documented as of this encounter
--- OUTSIDE RECORDS SUMMARY | 2024-06-21 12:43 | XMS_ITS | Encounter Summary ---
Author Organization [facility] Address [address] [place] [address] Care Team Providers Care Brush Operator Name Role Phone Chary Wilson MD Primary Care Provider [phone] Encounter Details Date Type Department Care Team (Late Contact Info) Description 02/10/2024 Lab Requisition [facility] - Main Lab [address] [facility] [place] [phone] Joya Moore MD [address] [place] [address] Encounter for other general examination Social History [...] Info) Description 07/03/2024 11:00 AM EDT Appointment [facility] CT Scan [address] [place] [phone] 07/19/2024 1:30 PM EDT Office Visit [facility] Hematology Oncology [address] [place] [phone] Marla Manuel, DO [address] [place] [address] 08/08/2024 9:45 AM EDT Office Visit Adult Medicine [facility] [address] [place] [address] Milli Luu PA [address] [place], [place] documented as of this encounter Procedures Procedure Name Priority Date/Time Associated Diagnosis Comments THYROID STIMULATING HORMONE Routine 02/10/2024 5:24 AM EST Encounter for other general examination VITAMIN B12 Routine 02/10/2024 5:24 AM EST Encounter for other general examination documented in this encounter Results * Thyroid stimulating hormone (02/10/2024 5:24 AM EST) TSH 0.93 0.40 - 4.00 mcIU/mL LAB CHEMISTRY METHOD 02/10/2024 12:30 PM EST [facility] Blood Venous blood specimen / Unknown Venipuncture / Unknown 02/10/2024 5:24 AM EST 02/10/2024 11:20 AM EST us Joya Moore MD LAB BLOOD ORDERABLES Final Resu lt [facility] [address] [place] [address], * Vitamin B12 (02/10/2024 5:24 AM EST) Vitamin B-12 536 250 - 900 pcg/mL LAB CHEMISTRY METHOD 02/10/2024 1:05 PM EST [facility] Blood Venous blood specimen / Unknown Venipuncture / Unknown 02/10/2024 5:24 AM EST 02/10/2024 11:20 AM EST us Joya Moore MD LAB BLOOD ORDERABLES Final Resu lt [facility] [address] [place] [address], documented in this encounter Visit Diagnoses Diagnosis Encounter for other general examination documented in this encounter Care Teams Brush Operator Relationship Specialty Start Date End Date Chary Wilson MD [address] [place] [address] PCP - General 02/22/1996 documented as of this encounter
== END 2024-06-21 10:58 | disposition home or self-care (01) ==
LOC: HO.MRI 10:57
PROVIDERS: PCP Internal Medicine; Visit Provider Psychiatry & Neurology Neurology
DX: G93.40 Encephalopathy, unspecified (principal)
CPT/HCPCS: 70551

== ENCOUNTER → 2024-06-21 11:34 | Outpatient (BNV) | payer MEDICARE, OTHER, SELFPAY | PROVIDERS: PCP Internal Medicine; Visit Provider Radiology Diagnostic Radiology | DX: R90.82 White matter disease, unspecified (principal) | CPT/HCPCS: 70551 ==

== ENCOUNTER 2024-09-27 11:44 | Outpatient (AMB) | payer MEDICARE, OTHER, SELFPAY ==
--- NOTE | 2024-09-27 11:48 | A.OFFVIS_ITS ---
Intake Visit Reasons: 3 Months / Dementia Allergies pregabalin Allergy (Unknown, Verified 09/21/24 08:47) Unknown HPI Comments Details: 79 yo RH woman with multifactorial, vascular plus degenerative, dementia. (She has h/o endocarditis many years ago after which she was differenet. She was here for change in personality, not able to take care of herself, forgetful, and having multiple behavioral symptoms. Her son stated that his mother was not who she used to be. She used to be very social and active but not anymore. She was forgetful and treated for anxiety and depression. She was described as having hallucinations and delusional. She was also having frequent shaking of her hands and legs. No LOC. She said that she was very depressed because she was not able to do things. She was scheduled to have cataract surgery. These symptoms were going on for a few years and worsened last year when her . Her sed rate was 9, B12 was 755, and Lyme serology was negative.) [facility] Medical History (Updated 09/27/24 @ 12:06 by Samara Lockhart MD) Multifactorial dementia Alzheimer disease Cerebral microvascular disease Encephalopathy Review of Systems Const Details: Complain of to stressed and anxious and sometime forgetful at the same time she said that there was nothing wrong with a Physical Exam Neuro Other: Mental Status: Alert and oriented to person, place, and time. Normal attention. Normal spontaneous speech, fluency, and comprehension. Cranial Nerves: CN II: Visual magaña full to confrontation, visual acuity intact. CN III, IV, : Pupils equal, round, reactive to light and accommodation. Extraocular movements are normal. CN V: Facial sensation is normal. CN VII: Facial movements symmetrical. CN VIII: Hearing intact to bedside conversation is normal. CN IX, X: Palate elevates symmetrically. CN XI: Shoulder shrug and head turn symmetrical. CN XII: Tongue midline without atrophy or fasciculations. Walking with a walker. Extrapyramidal: Full facial expressions and blinking. No rigidity. Movements are appropriate with no tremor or abnormality. Speech: Normal; no dysarthria or tremor. Assessment & Plan Assessment & Plan (1) Multifactorial dementia: Code(s): F03.90 - Unspecified dementia, unspecified severity, without behavioral disturbance, psychotic disturbance, mood disturbance, and anxiety Category: Medical (2) Mild dementia: Comment: [place] [facility] [place]: Mild mod atrophy, mild to mod MVD Code(s): F03.A0 - Unspecified dementia, mild, without behavioral disturbance, psychotic disturbance, mood disturbance, and anxiety Category: Medical Qualifiers: Dementia type: associated with other underlying disease Dementia behavioral or psychological symptom: with anxiety Qualified Code(s): F02.A4 - Dementia in other diseases classified elsewhere, mild, with anxiety Plan Impression: a: Mild dementia b: Cerebral microvascular disease contributing to her cognitive and physical issues Rec: a: Control BP b: Baby aspirin daily c: Donepezil 10mg daily d: Avoid stress e: Stay physically and socially active Medications: New donepezil 10 mg PO BEDTIME 90 tabs 1RF Coding Level of Care Code Est Pt Level 4 (61361) Diagnoses Multifactorial dementia F03.90 Mild dementia associated with other underlying disease, with anxiety F02.A4 Dementia type: associated with other underlying disease Dementia behavioral or psychological symptom: with anxiety
--- OUTSIDE RECORDS SUMMARY | 2024-09-27 12:18 | XMS_ITS ---
Author Name [facility] Organization Unknown Care Team Organization Name Specialty Phone Email Start Date End Da [facility] Chary Wilson Primary Care 12/29/2021
--- OUTSIDE RECORDS SUMMARY | 2024-09-27 12:18 | XMS_ITS | Clinical Summary ---
Author Organization [facility] Address [address] [place] [address] Care Team Providers Care Nurse Private Duty Name Role Phone Chary Wilson MD Primary Care Provider [phone] Allergies No known active allergies Medications Medication [...] 67 09/16/2023 10:29 AM EDT Temperature 36.7 C (98 F) 09/16/2023 10:29 AM EDT Respiratory Rate - [...] Hepatitis C Screening 1945 COVID-19 Vaccine (#1) 1947 Depression Screening 1959 Preventative Health Evaluation 1965 Tobacco Cessation Counseling 1965 Shingrix-Zoster Vaccine (1 of 2) 1997 Fall Risk Assessment 2012 Osteoporosis Screening (DEXA Scan) 2012 DTap / Tdap / Td (2 - Td or Tdap) 10/28/2021 10/29/2011 RSV Adult > 60+ Yrs or (1 - 1-dose 75+ series) 2022 Influenza Vaccine (#1) 2024 3, 11/05/2021, 10/26/2019, Additional history exists Pneumococcal Vaccine Completed 10/26/2019, 11/05/2017, 07/10/2014, Additional history exists Hepatitis B Vaccines Aged Out No long er eligible based on patient's age to complete this topic RSV Ped < 20 months Aged Out No longe r eligible based on patient's age to complete this topic Care Teams Nurse Private Duty Relationship Specialty Start Date End Date Chary Wilson MD PCP - General Internal Medicine 08/23/22
--- OUTSIDE RECORDS SUMMARY | 2024-09-27 12:18 | XMS_ITS | Clinical Summary ---
Author Organization [facility] Address [address] [address] Phone Care Team Providers Care Guest Service Supervisor Name Role Phone Chary Wilson MD Primary Care Provider [phone] Allergies Active Allergy Reactions Criticality Noted Date [...] Care Team (Late st Contact Info) Description 10/23/2024 Orders Only [facility] [address] [phone] Michael Bellamy MD [address] [phone] Chronic kidney disease, stage 2 (mild) 12/24/2024 1:45 PM EST Office Visit [facility] [address] [phone] Michael Bellamy MD [address] [phone] Health Maintenance Due Date Last Done Comments Influenza Vaccine (#1) 2024 4, 01/05/2023, 11/05/2021, Additional history exists Pneumococcal Vaccine: 50+ Years Completed 10/26/2019, 11/05/2017, 07/10/2014, Additional history exists Pneumococcal Vaccine: Peds (0 to 5 Years) and At-Risk Patients (6 to 49 Years) Discontinued 10/26/2019, 11/05/2017, 07/10/2014, Additional history exists Hepatitis B Vaccine Aged Out No longe r eligible based on patient's age to complete this topic Insurance [facility] Medicare [facility] Member Subscriber Plan / Payer (Ef fective 2020-Present) Name:Isabelle Lemus Relation to Subscriber:Self Name:JajastepanRaffi ceronine Payer ID:[id number] (NAIC) Group ID:Not on file Type:Not on file Address: [place] [id number] Medicare Care Teams Guest Service Supervisor Relationship Specialty Start Date End Date Chray Wilson MD [address] [place] [address] PCP - General Internal Medicine 09/07/21
--- OUTSIDE RECORDS SUMMARY | 2024-09-27 12:18 | XMS_ITS | Clinical Summary ---
Author Organization [facility] Address [address] [place] [address] Phone Care Team Providers Care Merchant Seaman Name Role Phone Chary Wilson MD Primary Care Provider [phone] Allergies No known active allergies Medications cholecalciferol (VITAMIN D-3) 25 mcg (1,000 unit) tablet Take 1 tablet (25 mcg total) by mouth daily. Active amLODIPine (NORVASC) 5 mg tablet Take 1 tablet (5 mg total) by mouth 1 (one) time each day. 90 tablet 1 4 Active aspirin 81 mg EC tablet Take 1 tablet (81 mg total) by mouth 1 (one) time each day. 90 tablet 3 5 Active pantoprazole (PROTONIX) 40 mg EC tablet Take 1 tablet (40 mg total) by mouth 2 (two) times a day. 180 tablet 1 5 Active levothyroxine (SYNTHROID, LEVOTHROID) 25 mcg tablet Take 1 tablet (25 mcg total) by mouth 1 (one) time each day. 90 tablet 1 5 Active metoprolol succinate (TOPROL-XL) 25 mg 24 hr tablet TAKE 1 TABLET BY MOUTH ONCE DAILY. *DO NOT CRUSH OR CHEW* 90 tablet 1 5 Active atorvastatin (LIPITOR) 10 mg tablet TAKE 1 TABLET BY MOUTH AT BEDTIME. 90 tablet 1 5 Active traZODone (DESYREL) 50 mg tablet TAKE 1 TABLET BY MOUTH AT BEDTIME. 90 tablet 1 5 Active FLUoxetine (PROzac) 10 mg capsule TAKE 1 CAPSULE BY MOUTH ONCE DAILY ALONG WITH 20 MG DAILY. 30 capsule 5 5 Active FLUoxetine (PROzac) 20 mg capsule Take along with Fluoxetine 10 mg for a total of 30 mg by mouth daily 30 capsule 5 5 Active donepeziL (ARICEPT) 5 mg tablet 5 Active Active Problems Problem Noted Date Diagnosed Date PFD (pelvic floor dysfunction) 11/24/2023 Rectocele 11/24/2023 Malignant neoplasm of lower lobe of right lung ([facility] V24, CMS/H[facility] V28) 08/16/2022 Overview (02/24/2024): 08/13 non small cell lung carcinoma RT, no active disease as of 01/14 Vitamin D deficiency 06/21/2022 Chronic back pain 04/16/2020 Hypertension 01/30/2020 CAD (coronary artery disease) 12/27/2018 Overview (11/24/2023): 2 v CABG 11/09 Complete heart block ([facility] V24, [facility] V28) 12/27/2018 Overview (11/24/2023): Pacemaker 12/09 Hypothyroidism 12/27/2018 S/P MVR (mitral valve replacement) 12/27/2018 Overview (01/03/2024): 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 11/09 Bioprosthetic valve Pacemaker 12/27/2018 Overview (01/03/2024): Complete heart block 12/09 Depression, major, recurrent ([facility] V24) 02/11 Osteopenia 12/03/2012 Overview (11/24/2023): 11/2012: T-score lumbar (+1.6); hip (-1.3) 11/2019: T-score lumbar (+1.1); hip (-1.7); FRAX 18% 06/2022: T-score lumbar (+1.4); hip (-1.7); FRAX 18% Kidney stone 09/01/2010 Overview (11/24/2023): 4 mm nonobstructing, left kidney Onychomycosis 11/17/2006 Acute osteomyelitis of lower leg ([facility] V24, [facility] V28) 03/12/2005 Overview (11/24/2023): left leg age 10, age 22 IMO update Carpal tunnel syndrome 03/12/2005 Hyperlipidemia 03/12/2005 Idiopathic scoliosis and kyphoscoliosis 03/12/19 06 Resolved Problems Problem Noted Date Diagnosed Date Resolved Date Stage 2 chronic kidney disease 01/03/2024 01/17/2024 Overview (01/03/2024): Hx dialysis dependent NIC. Follows with [facility] Stage 3 chronic kidney disea se ([facility] V24, [facility] V28) 07/29/2020 01/17/2024 Encounters Date Type Department Care Team Description 09/12/2024 Telephone Gastroenterology [facility] [address] [phone] Veronica Candelaria PA special procedure 09/06/2024 Telephone Gastroenterology [facility] [address] [place] [phone] Veronica Candelaria PA provider call back 08/08/2024 10:30 AM EDT Office Visit Adult Medicine [address] [phone] Milli Luu PA Encounter for annual wellness visit (AWV) in Medicare patient (Primary Dx); Osteopenia, unspecified location; Asymptomatic menopausal state; Vitamin D deficiency; Malignant neoplasm of lower lobe of right lung ([facility] V24, [facility] V28); Hypothyroidism due to acquired atrophy of thyroid; Primary hypertension; Other hyperlipidemia; Complete heart block ([facility] V24, [facility] V28); Coronary artery disease involving [place] coronary artery of [place] heart without angina pectoris; Chronic back pain, unspecified back location, unspecified back pain laterality; Current severe episode of major depressive disorder without psychotic features, unspecified whether recurrent ([place] V24, [place] V28); Dementia, unspecified dementia severity, unspecified dementia type, unspecified whether behavioral, psychotic, or mood disturbance or anxiety ([place] V24, [facility] V28) 07/19/2024 1:30 PM EDT Office Visit [facility] Hematology Oncology [address] [place] [address] Marla Manuel, Malignant neoplasm of lung, unspecified laterality, unspecified part of lung ([place] V24, [place] V28) (Primary Dx); Dysuria; Abdominal bloating 07/03/2024 10:48 AM EDT - 07/03/2024 11:59 PM EDT Hospital Encounter [facility] CT Scan [address] [place] [address] Malignant neoplasm of lung, unspecified laterality, unspecified part of lung ([place] V24, [place] V28) Discharge Disposition: Home or Self Care from Last 3 Months Immunizations Name Administration [...] Comments Stage 3 chronic kidney disea se ([facility] V24, [facility] V28) 07/29/2020 Hypertension 01/30/2020 Hypothyroidism 12/27/2018 Kidney stone 09/01/2010 4 mm nonobstruct ing, left kidney Malignant neoplasm of lower lobe of right lung ([facility] V24, [facility] V28) 08/16/202208/13 non small c ell lung carcinoma Onychomycosis 11/17/2006 Osteopenia 12/03/201211/2012: T-score lumbar (+1.6); [...] you may not have stable housing? No 08/07/2024 Food Access & Nutrition Answer Date Rec orded Do you have access to a vari ety of food including fruits and vegetables? Yes 08/07/2024 Access to Healthcare Answer Date Record ed Within the last 3 months, ho w many times did you visit the emergency department for your medical care? 1 08/07/2024 Health Literacy Answer Date Recorded How often do you need to hav e someone help you when you read instructions, pamphlets, or other written material from your doctor or pharmacy? Rarely 08/07/2024 Caregiver: How often do you need to have someone help you when you read instructions, pamphlets, or other written material from your doctor or pharmacy? Not on file 08/07/2024 Financial Risk Answer Date Recorded How hard is it for you to pa y for the very basics like food, housing, medical care, and air conditioning / heating? Not very hard 08/07/2024 Transportation Answer Date Recorded Has the lack of transportati on kept you from meetings, work, or from getting things needed for daily living? No Has the lack of transportati on kept you from medical appointments or from getting medications? No 08/07/2024 Social Isolation Answer Date Recorded How often do you feel lonely or isolated from th ose around you? Rarely 08/07/2024 Food Risk Answer Date Recorded Within the past 12 months we worried whether our food would run out before we got money to buy more. Never true 08/07/2024 Within the past 12 months th e food we bought just didn't last and we didn't have money to get more. Never true 08/07/2024 Dependent Care Answer Date Recorded Do you need help finding or paying for care for your loved ones. For example, childcare attendant or elderly care for an older adult? No 08/07/2024 Education Answer Date Recorded Do you think completing more education or training, like finishing a GED, going to college, or learning a trade, would be helpful for you? No 08/07/2024 Employment and Income Answer Date Recor ded During the last four weeks, have you been actively looking for work? No 08/07/2024 Living Situation Answer Date Recorded What is your living situation? 0 08/07/2024 Comments Unknown Sex and Gender Information Value Date Recorded Sex Assigned at Female 07/02/2024 10:50 AM EDT Legal Sex Female 3:52 AM EST Gender Identity Female 07/02/2024 10:50 AM EDT Sexual Orientation Not on file Obstetrics History Last Filed Vital Signs Vital Sign Reading Time Taken Comments Blood Pressure 126/86 08/08/2024 11:00 AM EDT Pulse 61 08/08/2024 10:34 AM EDT Temperature 35.6 C (96.1 F) 08/08/2024 10:34 AM EDT Respiratory Rate 14 08/08/2024 10:34 AM EDT Oxygen Saturation 98% 08/08/2024 10:34 AM EDT Inhaled Oxygen Concentration - - Weight 61.2 kg (135 lb) 08/08/2024 10:34 AM EDT Height 154.9 cm (5' 1 ) 08/08/2024 10:34 AM EDT Body Mass Index 25.51 08/08/2024 10:34 AM EDT Plan of Treatment Upcoming Encounters Date Type Department Care Team (Late st Contact Info) Description 10/09/2024 11:00 AM EDT Appointment [facility] Endoscopy [address] [place] [address] Rafi Garcia MD [address] [address] 10/25/2024 1:40 PM EDT Office Visit Gastroenterology - [place] 175 [facility] [address] [phone] Veronica Candelaria PA [address] [address] 01/09/2025 10:45 AM EST Appointment Bone Density - [place] [address] [place] [phone] 01/24/2025 1:30 PM EST Office Visit [facility] Hematology Oncology [address] [place] [phone] Marla Manuel, DO [address] [place] [address] Health Maintenance Due Date Last Done Comments Zoster Vaccines (1 of 2) 1964 COVID-19 Vaccine ( season) 2023 11/23/2022, 09/24/2021, 12/16/2020, Additional history exists Influenza Vaccine (#1) 2024 , 01/05/2023, 11/05/2021, Additional history exists Hypertension/CHF/CAD Annual BMP Blood Test 06/27/2025 06/27/2024, 06/13/2024, 02/18/2024, Additional history exists Social Influencers of Health Screening 08/07/2025 08/07/2024 Falls Risk Assessment 08/08/2025 08/08/2024, 024 Medicare Annual Wellness Visit 08/08/2025 08/08/2024, 06/30/2023 Cholesterol Screening (Lipid Panel) 01/12/2029 01/13/2024, 12/09/2022 [...] exists RSV Immunization Adult Patients Completed 01/11/2023 Depression Screening Completed 08/07/2024, 06/30/19 24 HIB Vaccines Aged Out No longer eligi [...] Procedure Name Priority Date/Time Associated Diagnosis Comments ADHIKARI URINE CULTURE TUBE Routine 08/08/2024 11:26 AM EDT Dysuria URINALYSIS WITH REFLEX MICROSCOPIC AND CULTURE Routine 08/08/2024 11:26 AM EDT Dysuria URINALYSIS WITH REFLEX MICROSCOPIC AND CULTURE Routine 08/08/2024 11:[address] CHEST W CONTRAST Routine 07/03/2024 1 1:30 AM EDT Malignant neoplasm of lung, unspecified laterality, unspecified part of lung (CMS/HCC V24, CMS/HCC V28) COMPREHENSIVE METABOLIC PANEL STAT 06/27/2024 11:53 AM EDT Preop examination LIPID PANEL WITH REFLEX TO DIRECT LDL Routine 01/13/2024 11:51 AM EST Mixed hyperlipidemia HM DEPRESSION SCREENING Routine 06/30/2023 DXA BONE DENSITY STUDY 1+ SITS AXIAL SKEL Routine 06/21/2022 3:08 PM EDT Other specified disorders of bone density and structure, unspecified site SCREENING MAMMOGRAPHY BI 2-VIEW BREAST INC CAD Routine 06/21/2022 2:51 PM EDT Encounter for screening mammogram for malignant neoplasm of breast HM COLONOSCOPY Routine 05/05/2022 from Last 3 Months or Most Recently Relevant to Health Maintenance Results * Urinalysis with reflex microscopic and culture (08/08/2024 11:26 AM EDT) Specific [place] Urine 1.011 1.003 - 1.030 LAB URINALYSIS - [facility]OMATED METHOD [facility], Urine 5.5 5.0 - 8.0 pH LAB URINALYSIS - AUTOMATED METHOD 08/08/2024 2:24 PM [facility] Leukocytes, Urine Negative Negative LAB URINALYSIS - AUTOMATED METHOD 08/08/2024 2:24 PM [facility] Nitrite, Urine Negative Negative LAB URINALYSIS - AUTOMATED METHOD 08/08/2024 2:24 PM [facility] Protein, Urine Negative <=Trace mg/dL LAB URINALYSIS - AUTOMATED METHOD 08/08/2024 2:24 PM [facility] Glucose, Urine Negative Negative mg/dL LAB URINALYSIS - AUTOMATED METHOD 08/08/2024 2:24 PM [facility] Ketones, Urine Negative Negative mg/dL LAB URINALYSIS - AUTOMATED METHOD 08/08/2024 2:24 PM [facility] Urobilinogen, Urine 0.2 0.2 - 1.0 mg/dL LAB URINALYSIS - AUTOMATED METHOD 08/08/2024 2:24 PM [facility] Bilirubin, Urine Negative Negative LAB URINALYSIS - AUTOMATED METHOD 08/08/2024 2:24 PM EDT [facility] Blood, Urine Negative Negative LAB URINALYSIS - AUTOMATED METHOD 08/08/2024 2:24 PM EDT [facility] Urine Urine specimen obtained by clean catch procedure / Unknown Non-blood Collection / Unknown 08/08/2024 11:26 AM EDT 08/08/2024 11:26 AM EDT [facility]ABLES Final Result Performing Organization Address [facility]/ZIP Co de Phone Number [facility] [address] [place] [address], [place] [phone] * Adhikari urine culture tube (08/08/2024 11:26 AM EDT) Extra Tube Hold for add-ons. 08/08/2024 5:01 PM EDT [facility] Comment:Auto resulted. Urine Urine specimen obtained by clean catch procedure / Unknown Non-blood Collection / Unknown 08/08/2024 11:26 AM EDT 08/08/2024 11:26 AM EDT Marla Vanessa Manuel [facility] URINE ORDERABLES Final Result Performing Organization Address [facility] Co de Phone Number [facility] [address] [place] [address], [place] [phone] * CT Chest w Contrast (07/03/2024 11:30 AM EDT) Anatomical Region Laterality Modality Body Computed Tomogra phy 07/03/2024 12:4 9 PM EDT Impressions 07/03/2024 1:16 PM EDT Findings consistent with radiation treatment to right lower lobe cancer. Poorly defined residual opacity likely represents some fibrotic and postradiation change. No suspicious interval change. Stable right upper lobe nodule. -------- FINAL REPORT -------- Dictated By: René Fenton Dictated Date: 07/03/2024 12:49 ET Assigned Physician: René Fenton Reviewed and Electronically Signed By: René Fenton Signed Date: 07/03/2024 13:16 ET Workstation ID: [id number] Transcribed By: Self Edit Transcribed Date: 07/03/2024 12:49 ET Narrative 07/03/2024 1:16 PM EDT EXAMINATION: CT CHEST WITH CONTRAST CLINICAL INFORMATION: Malignant neoplasm of lung. Right lower lobe lung adenocarcinoma Continue to monitor on active surveillance COMPARISON: Portions of previous CT 01/13/24 TECHNIQUE: Multidetector CT. Examination of the chest. Examination of the chest following the IV administration of nonionic contrast. Reformatting in the coronal and sagittal planes. DLP: 864 mGy-cm Dose optimization was performed including the use of low-dose iterative reconstruction technique with automatic exposure control based on patient size. Type of contrast: ISOVUE 370 Volume of IV contrast: 70 mL Volume of contrast discarded: 0 mL FINDINGS: LUNG: No abnormalities of the trachea or mainstem bronchi. There is a poorly defined opacity in the ventral lateral aspect of the right lower lobe retracting the major fissure This is difficult to quantify and contains some aerated lung. Overall measurements as follows; 07/03/24-2.1 x 0.8 cm 01/13/24-2.1 x 1.1 cm On 02/23/23 there was a solid irregular 1.1 cm mass Round solid nodule central aspect right upper lobe 07/03/24-0.5 cm () 01/13/24-0.5 cm () 02/23/23-0.5 cm () Slight nodularity in the lateral aspect of the upper right major fissure is unchanged since 01/13/24. There are a few scattered granulomata. There are a few reticular opacities. No evidence of acute pneumonia. MEDIASTINUM: There are no enlarged mediastinal or hilar lymph nodes. No suspicious abnormality of the esophagus CARDIAC: Extensive artifact related to cardiac leads. I suspect previous mitral valve repair. There may be coronary stents. CORONARY CALCIFICATION: Previous cardiac surgery. VASCULAR: There is no thoracic aortic aneurysm. The main pulmonary artery is normal caliber PLEURA: There is no pleural fluid or pneumothorax AXILLA/CHEST WALL: There is an unchanged small mass in the outer lower right breast. Artifact related to a power generator in the left chest wall. VISUALIZED UPPER ABDOMEN: No suspicious abnormality on limited assessment of the visualized upper abdomen MUSCULOSKELETAL: No suspicious focal bony lesion. Severe scoliosis with associated degenerative change. Procedure Note René Fenton MD - 07/03/2024 EXAMINATION: CT CHEST WITH CONTRAST CLINICAL INFORMATION: Malignant neoplasm of lung. Right lower lobe lung adenocarcinoma Continue to monitor on active surveillance COMPARISON: Portions of previous CT 01/13/24 TECHNIQUE: Multidetector CT. Examination of the chest. Examination of the chest following the IV administration of nonioniccontrast. Reformatting in the coronal and sagittal planes. DLP: 864 mGy-cm Dose optimization was performed including the use of low-dose iterativereconstruction technique with automatic exposure control based on patientsize. Type of contrast: ISOVUE 370 Volume of IV contrast: 70 mL Volume of contrast discarded: 0 mL FINDINGS: LUNG: No abnormalities of the trachea or mainstem bronchi. There is a poorly defined opacity in the ventral lateral aspect of theright lower lobe retracting the major fissure This is difficult to quantify and contains some aerated lung. Overall measurements as follows; 07/03/24-2.1 x 0.8 cm 01/13/24-2.1 x 1.1 cm On 02/23/23 there was a solid irregular 1.1 cm mass Round solid nodule central aspect right upper lobe 07/03/24-0.5 cm () 01/13/24-0.5 cm () 02/23/23-0.5 cm () Slight nodularity in the lateral aspect of the upper right major fissureis unchanged since 01/13/24. There are a few scattered granulomata. There are a few reticular opacities. No evidence of acute pneumonia. MEDIASTINUM: There are no enlarged mediastinal or hilar lymph nodes. Nosuspicious abnormality of the esophagus CARDIAC: Extensive artifact related to cardiac leads. I suspect previousmitral valve repair. There may be coronary stents. CORONARY CALCIFICATION: Previous cardiac surgery. VASCULAR: There is no thoracic aortic aneurysm. The main pulmonary arteryis normal caliber PLEURA: There is no pleural fluid or pneumothorax AXILLA/CHEST WALL: There is an unchanged small mass in the outer lowerright breast. Artifact related to a power generator in the left chestwall. VISUALIZED UPPER ABDOMEN: No suspicious abnormality on limited assessmentof the visualized upper abdomen MUSCULOSKELETAL: No suspicious focal bony lesion. Severe scoliosis withassociated degenerative change. IMPRESSION: Findings consistent with radiation treatment to right lower lobe cancer.Poorly defined residual opacity likely represents some fibrotic andpostradiation change. No suspicious interval change. Stable right upper lobe nodule. -------- FINAL REPORT -------- Dictated By: René Fenton Dictated Date: 07/03/2024 12:49 ET Assigned Physician: René Fenton Reviewed and Electronically Signed By: René Fenton Signed Date: 07/03/2024 13:16 ET Workstation ID: [id number] Transcribed By: Self Edit Transcribed Date: 07/03/2024 12:49 ET Marla Manuel DO IMG CT PROCEDURES Fin al Result * (ABNORMAL) Comprehensive metabolic panel (06/27/2024 11:53 AM EDT) Sodium 142 133 - 145 mmol/L LAB CHEMISTRY METHOD 06/27/2024 2:05 PM [facility] Potassium 5.4 3.5 - 5.5 mmol/L LAB CHEMISTRY METHOD 06/27/2024 2:05 PM [facility] Chloride 109 96 - 110 mmol/L LAB CHEMISTRY METHOD 06/27/2024 2:05 PM [facility] CO2 28 21 - 32 mmol/L LAB CHEMISTRY METHOD 06/27/2024 2:05 PM [facility] Anion Gap 5 3 - 11 LAB CHEMISTRY METHOD 06/27/2024 2:05 PM [facility] Glucose 98 70 - 100 mg/dL LAB CHEMISTRY METHOD 06/27/2024 2:05 PM [facility] BUN 18 5 - 25 mg/dL LAB CHEMISTRY METHOD 06/27/2024 2:05 PM [facility] Creatinine 1.01 0.50 - 1.10 mg/dL LAB CHEMISTRY METHOD 06/27/2024 2:05 PM [facility] eGFR 57(L) >=60 mL/min/1. 73m2 LAB CHEMISTRY METHOD 06/27/2024 2:05 PM [facility] Comment:Calculation based on the Chronic Kidney Disease Epidemiology Collaboration (CKD-EPI) equation refit without adjustment for race. BUN/Creatinine Ratio 17.8 LAB CHEMISTRY METHOD 06/27/2024 2:05 PM [facility] Calcium 9.4 8.5 - 10.5 mg/dL LAB CHEMISTRY METHOD 06/27/2024 2:05 PM [facility] AST (SGOT) 20 10 - 42 unit/L LAB CHEMISTRY METHOD 06/27/2024 2:05 PM [facility] ALT (SGPT) 21 10 - 60 unit/L LAB CHEMISTRY METHOD 06/27/2024 2:05 PM [facility] Alkaline Phosphatase 79 42 - 121 unit/L LAB CHEMISTRY METHOD 06/27/2024 2:05 PM [facility] Total Protein 6.6 6.0 - 8.0 g/dL LAB CHEMISTRY METHOD 06/27/2024 2:05 PM [facility] Albumin 3.6 3.2 - 5.0 g/dL LAB CHEMISTRY METHOD 06/27/2024 2:05 PM [facility] Total Bilirubin 0.4 0.0 - 1.4 mg/dL LAB CHEMISTRY METHOD 06/27/2024 2:05 PM [facility] Blood Venous blood specimen / Unknown Venipuncture / Unknown 06/27/2024 11:53 AM EDT 06/27/2024 11:53 AM EDT us Milli ZULETA LAB BLOOD ORDERABLES Final Re sult [facility] [address] [place] [address], [place] [phone] * (ABNORMAL) Lipid panel with reflex to direct LDL (01/13/2024 11:51 AM EST) Cholesterol 205(H) 0 - 200 mg/dL LAB CHEMISTRY METHOD 01/13/2024 1:47 PM EST [facility] Triglycerides 240(H) 0 - 150 mg/dL LAB CHEMISTRY METHOD 01/13/2024 1:47 PM EST [facility] HDL 54 >=40 mg/dL LAB CHEMISTRY METHOD 01/13/2024 1:47 PM EST [facility] LDL Calculated 103(H) 0 - 100 mg/dL LAB CHEMISTRY METHOD 01/13/2024 1:47 PM EST [facility] VLDL Cholesterol Roby 48 mg/dL LAB CHEMISTRY METHOD 01/13/2024 1:47 PM EST [facility] Non HDL Chol. (LDL+VLDL) 151(H) <145 mg/dL LAB CHEMISTRY METHOD 01/13/2024 1:47 PM EST [facility] Chol/HDL Ratio 3.8 0.0 - 4.4 LAB CHEMISTRY METHOD 01/13/2024 1:47 PM EST [facility] Blood Venous blood specimen / Unknown Venipuncture / Unknown 01/13/2024 11:51 AM EST 01/13/2024 12:46 PM EST Milli ZULETA LAB BLOOD ORDERABLES Final Re sult [facility] [address] [place] [address], [place] [phone] * Depression Screening (06/30/2023) Pathologist [facility] Depression Screening abstracted Historical Provider MD HEALTH MAINTENANCE Final Result * DXA BONE DENSITY STUDY 1+ SITS AXIAL SKEL (06/21/2022 3:08 PM EDT) Anatomical Region Laterality Modality Bone Densitometr y 10/25/2021 4:49 PM EDT Narrative 06/22/2022 7:18 PM EDT Clinical history: other osteoporosis Scans of the lumbar spine and hips were performed on a MeriTaleem fan beam bone densitometer. Bone mineral density measurements [...] >20% for major osteoporotic fracture PLEASE NOTE: W.H.O. classification is based on lowest measured density at the spine, femoral neck, or total hip.This classification has prognostic significance when applied to post menopausal women and older men. 1) The World Health Organization defines low BMD as follows: T-score Normal at or > -1 Osteopenia < -1 and > -2.5 Osteoporosis at or < -2.5 without fractures Established osteoporosis < -2.5 with fractures Procedure Note Suzette Luna MD - 03/29/2023 Clinical history: other osteoporosis Scans of the lumbar spine and hips were performed on a [employer]ale[employer] beam bone densitometer. Bone mineral density measurements [...] Routine screening. No current breast complaints. Family history of breast cancer in mother Comparison: [...] typically benign parenchymal asymmetries IMPRESSION: : 1. 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 Care Teams Merchant Seaman Relationship Specialty Start Date End Date Chary Wilson MD [address] [place] [address] PCP - General 02/22/1996
== END 2024-09-27 12:10 | disposition home or self-care (01) ==
LOC: HO.HSM 11:44
PROVIDERS: PCP Internal Medicine; Referring Provider Internal Medicine; Visit Provider Psychiatry & Neurology Neurology
DX: F03.90 Unspecified dementia, unspecified severity, without behavioral disturbance, psychotic disturbance, mood disturbance, and anxiety (principal); F02.A4 Dementia in other diseases classified elsewhere, mild, with anxiety
CPT/HCPCS: 99214

== ENCOUNTER → 2024-09-27 11:44 | Outpatient (BNVA) | payer MEDICARE, OTHER, SELFPAY | PROVIDERS: PCP Internal Medicine; Referring Provider Internal Medicine; Visit Provider Psychiatry & Neurology Neurology | DX: F01.A0 Vascular dementia, mild, without behavioral disturbance, psychotic disturbance, mood disturbance, and anxiety (principal) | CPT/HCPCS: 99212 ==